=== PATIENT | male | born 1990 | race Caucasian/White ===

== ENCOUNTER → 2021-08-22 10:53 | Outpatient (CLI) | payer OTHER, SELFPAY ==
[2021-08-22 13:11] LABS: COVID-19 CEPHEID PCR (VTM/NP) Negative (Negative)
== END ==
PROVIDERS: Referring Provider Physician Assistant; Visit Provider Physician Assistant
DX: R05.9 Cough, unspecified (principal); R19.7 Diarrhea, unspecified; R09.89 Other specified symptoms and signs involving the circulatory and respiratory systems
CPT/HCPCS: U0003

== ENCOUNTER → 2021-08-27 10:16 | Outpatient (CLI) | payer OTHER, SELFPAY ==
[2021-08-27 11:41] LABS: Influenza A - CEPHEID Flu A NEGATIVE (NEGATIVE); Influenza B - CEPHEID Flu B NEGATIVE (NEGATIVE)
[2021-08-27 11:50] LABS: COVID-19 CEPHEID PCR (VTM/NP) Negative (Negative)
== END ==
PROVIDERS: Referring Provider Nurse Practitioner Family; Visit Provider Nurse Practitioner Family
DX: Z20.822 Contact with and (suspected) exposure to COVID-19 (principal); R68.89 Other general symptoms and signs
CPT/HCPCS: 87502; U0003

== ENCOUNTER → 2021-09-25 08:30 | Outpatient (CLI) | payer OTHER, SELFPAY ==
[2021-09-25 09:01] LABS: COVID19 -Nasal RAPID POSITIVE (Negative)
== END ==
PROVIDERS: Visit Provider Nurse Practitioner Family
DX: R09.81 Nasal congestion (principal); R09.89 Other specified symptoms and signs involving the circulatory and respiratory systems; R51.9 Headache, unspecified
CPT/HCPCS: 87635

== ENCOUNTER 2021-11-19 08:13 | Emergency (ER) | payer OTHER, SELFPAY ==
[2021-11-19 08:27] VITALS: BP 133/89; PULSE 76; RESP 20; TEMP 36.5; O2SAT 96; BMI 33.9
--- NOTE | 2021-11-19 08:33 | DI.CT.S_ITS ---
PROCEDURE: CT CERVICAL SPINE WO CON INDICATIONS: neck pain since friday hit head TECHNIQUE: Noncontrast 3 mm thick sections acquired from the skull base to the T4 level. Sagittal and coronal reformats were then constructed. For radiation dose reduction, the following was used: automated exposure control, adjustment of mA and/or kV according to patient size. COMPARISON: None. FINDINGS: Image quality: Excellent. Bones: No fractures or dislocations. Straightening of normal cervical lordosis is seen. Visualized superior ribs are intact. Soft tissues: Prevertebral soft tissues are normal in thickness. No paravertebral hematomas. No apical pneumothoraces. IMPRESSION: No acute cervical spine fracture or dislocation. Dictated by: Regino Morrell M.D. on 11/19/2021 at 9:09 Approved by: Regino Morrell M.D. on 11/19/2021 at 9:09
--- NOTE | 2021-11-19 08:49 | DI.CT.S_ITS ---
PROCEDURE: CT HEAD/BRAIN WO CON INDICATIONS: sp head injury on friday TECHNIQUE: Noncontrast 4.5 mm thick angled axial sections acquired from the foramen magnum to the vertex, with coronal and sagittal reformats. For radiation dose reduction, the following was used: automated exposure control, adjustment of mA and/or kV according to patient size. COMPARISON: None. FINDINGS: Image quality: Excellent. CSF spaces: Basal cisterns are patent. No extra-axial fluid collections. Ventricles are normal in size and shape. Brain: No midline shift. No intracranial masses or hemorrhage. Welch-white matter interface is normal. Skull and face: Calvarium and visualized facial bones are intact, without suspicious lesions. Sinuses: Visualized sinuses and mastoids are clear. IMPRESSION: No CT evidence of acute intracranial abnormalities. No gross acute skull fracture. Dictated by: Regino Morrell M.D. on 11/19/2021 at 9:08 Approved by: Regino Morrell M.D. on 11/19/2021 at 9:08
--- NOTE | 2021-11-19 09:15 | ED.HEATRA ---
HPI - Head Injury General Chief complaint: Head Injury Stated complaint: Head/neck pain, nausea post work accident Time Seen by Provider: 11/19/21 08:44 Source: patient Mode of arrival: Ambulatory Limitations: no limitations History of Present Illness HPI Narrative: This is a 31-year-old male who on Friday, November 16 was working on a [employer] when the head fell onto the crown of his head. Patient states he felt a little dazed. He has had a headache he had a large hematoma which she states has improved and has had some pain in his lower cervical spine. He was seen at [facility] cleared after evaluation. Patient has continued to have headaches and neck pain. He has had some tingling in his right arm and some tingling adjacent to that area. He is able to move his neck without significant pain but does have discomfort. He did not have any loss of consciousness. He has had some mild nausea but no vomiting. No vision changes. No chest pain or shortness of breath. No loss of bowel or bladder control. He is not appreciate any weakness or difficulty with movement of his extremities. He is healthy with the exception of history of hemiplegic migraines and takes a Triptan. He has had hernia repair. He has allergy to penicillin. He does use tobacco, occasionally drinks alcohol, denies illicit. He has been taking Advil Tylenol combination minimal improvement. Related Data Previous Rx's Medication Instructions Recorded benzonatate 100 mg capsule 100 mg PO BID-TID PRN #14 cap 08/22/21 diazepam 5 mg tablet (Valium) 5 mg PO TID PRN #10 tab 11/19/21 ondansetron 4 mg disintegrating 4 mg PO Q6H PRN #10 tab 11/19/21 tablet Allergies Allergy/AdvReac Type Severity Reaction Status Date / Time Penicillins Allergy Mild Unknown Verified 11/19/21 08:31 Review of Systems Review of Systems ROS Unobtainable: All systems reviewed & are unremarkable except as noted in HPI and below Patient History Social History Smoking Status: Current every day smoker Smoking Status: Current every day smoker alcohol intake frequency: 0-2 drinks per day Substance Use Type: does not use Exam Narrative Exam Narrative: GEN: C-collar in ED. Patient appears in mild distress. HEAD: No evidence of trauma, no raccoon/Mcintyre sign. NECK: Nontender, painless range of motion, trachea midline Positive Nexus criteria, there is mild midline tenderness at C6/7, no distracting injury, altered mental status, neuro deficit, recent EtOH. EYES: PERRLA, EOMI ENT: External inspection normal, trachea is midline, TM's are normal no hemotypanum, Nares are clear, no septal hematoma, no dental or oral injury, airway is normal and with normal occlusion, No bony tenderness RESP: Chest is nontender and has symmetric movement, no ecchymosis, breath sounds are normal no crackles, wheezes or rales CVS: Heart sounds are normal, no murmur noted, No JVD. ABG/GI: Nontender, soft, normal bowel sounds, no distention, no organomegaly NEURO: Oriented AOx3, neuro is grossly intact, sensation and motor is normal all 4 extremities moving, cranial nerves II through XII are intact, GCS is 15. Normal gait. PSYCH: Normal mood and affect SKIN: Intact, warm and dry, no crepitus and without decubitus BACK: No CVA tenderness, no vertebral tenderness, no step-off's, no crepitus EXT: Atraumatic, hips are nontender, no pedal edema, normal color and temperature, normal range of motion of extremities. Patient has 5/5 muscle strength, equal conventions assistant bilaterally. Normal sensation to light touch. Initial Vital Signs Initial Vital Signs: Vital Signs Temperature 97.7 F 11/19/21 08:27 Pulse Rate 76 11/19/21 08:27 Respiratory Rate 20 11/19/21 08:27 Blood Pressure 133/89 11/19/21 08:27 Pulse Oximetry 96 11/19/21 08:27 Scores GCS [place] coma scale eye opening: Spontaneous Denita coma scale verbal response: Orientated Denita coma scale motor response: Obey commands Denita coma scale total score: 15 Course Orders Ordered: ED Orders 11/19/21 08:33 CT cervical spine wo con Stat 11/19/21 08:49 CT head/brain wo con Stat Vital Signs Vital signs: Vital Signs - 8 hr 11/19/21 08:27 11/19/21 09:32 Temperature 97.7 F Pulse Rate 76 84 Respiratory Rate 20 18 Blood Pressure 133/89 133/87 Pulse Oximetry 96 100 MDM - Head Injury Imaging Data CT scan - head: Radiologist's Impression: [address] [address] [address] Scan Report Signed Patient: Curt Dover MR#: [id number] : 1990 Acct:[id number] Age/Sex: 31 / M Date of Service: 11/19/21 Loc: ED Accession Number: [id number] ?? Procedure: CT head/brain wo con Ordering Provider: Saniya Richard D.O. PROCEDURE:? CT HEAD/BRAIN WO CON ? INDICATIONS:? sp head injury on friday ? TECHNIQUE:? Noncontrast 4.5 mm thick angled axial sections acquired from the foramen magnum to the vertex, with coronal and sagittal reformats.? For radiation dose reduction, the following was used:? automated exposure control, adjustment of mA and/or kV according to patient size.? ? COMPARISON:? None. ? FINDINGS:? Image quality:? Excellent.? ? CSF spaces:? Basal cisterns are patent.? No extra-axial fluid collections.? Ventricles are normal in size and shape.? ? Brain:? No midline shift.? No intracranial masses or hemorrhage.? Welch-white matter interface is normal.? ? Skull and face:? Calvarium and visualized facial bones are intact, without suspicious lesions.? ? Sinuses:? Visualized sinuses and mastoids are clear.? ? IMPRESSION:? No CT evidence of acute intracranial abnormalities.? No gross acute skull fracture. ? ? Dictated by: Regino Mrorell M.D. on 11/19/2021 at 9:08 ? ? Approved by: Regino Morrell M.D. on 11/19/2021 at 9:08?? CT - cervical spine: Radiologist's Impression: [address] [address] [address] Scan Report Signed Patient: Curt Dover MR#: [id number] : 1990 Acct:[id number] Age/Sex: 31 / M Date of Service: 11/19/21 Loc: ED Accession Number: [id number] ?? Procedure: CT head/brain wo con Ordering Provider: Saniya Richard D.O. PROCEDURE:? CT HEAD/BRAIN WO CON ? INDICATIONS:? sp head injury on friday ? TECHNIQUE:? Noncontrast 4.5 mm thick angled axial sections acquired from the foramen magnum to the vertex, with coronal and sagittal reformats.? For radiation dose reduction, the following was used:? automated exposure control, adjustment of mA and/or kV according to patient size.? ? COMPARISON:? None. ? FINDINGS:? Image quality:? Excellent.? ? CSF spaces:? Basal cisterns are patent.? No extra-axial fluid collections.? Ventricles are normal in size and shape.? ? Brain:? No midline shift.? No intracranial masses or hemorrhage.? Welch-white matter interface is normal.? ? Skull and face:? Calvarium and visualized facial bones are intact, without suspicious lesions.? ? Sinuses:? Visualized sinuses and mastoids are clear.? ? IMPRESSION:? No CT evidence of acute intracranial abnormalities.? No gross acute skull fracture. ? ? Dictated by: Regino Morrell M.D. on 11/19/2021 at 9:08 ? ? Approved by: Regino Morrell M.D. on 11/19/2021 at 9:08?? [facility] Narrative Medical decision making narrative: This is a 31-year-old male who had a car fallen to his head. No loss of consciousness but has had some concussive symptoms and headache as well as some neck pain persisting since seen at [facility]. He did not have any imaging there he has had some tingling in his arm but no other neurologic changes. Head CT and C-spine are negative. Patient's physical exam is reassuring. He has been taking Advil and Tylenol plan for Zofran for nausea for concussive symptoms and a small dose of muscle relaxer. Discharge Plan Departure Patient Disposition: Home Clinical Impression: Concussion, Cervical strain Instructions: Concussion Activity Restrictions/Additional Instructions: Follow-up if you continue to have symptoms for more than a week. You may continue to take medication at home for your headaches. May take Zofran 1 tablet every 6 hours as needed for nausea. You may take muscle relaxer 1 tablet every 8 hours as needed for muscle spasm. This medication will make you sleepy do not drive, perform hazardous activities or make any major decisions while taking it. Prescription sent to [facility] in [place]. Please return for fevers, altered mental status, new confusion, persistent vomiting, new weakness, loss of sensation, loss of bowel or bladder control, difficulty with conventions assistant or movement or other new or concerning symptoms. Prescriptions: New diazepam [Valium] 5 mg tablet 5 mg PO TID PRN (Reason: muscle spasm) Qty: 10 0RF ondansetron 4 mg tablet,disintegrating 4 mg PO Q6H PRN (Reason: nausea and vomiting) Qty: 10 0RF No Action benzonatate 100 mg capsule 100 mg PO BID-TID PRN (Reason: cough) Qty: 14 0RF Referrals: Miscellaneous,Doctor, MD [Primary Care Provider] - Stand Alone Forms: Work Release Note
[2021-11-19 09:32] VITALS: BP 133/87; PULSE 84; RESP 18; O2SAT 100
== END 2021-11-19 10:11 | disposition home or self-care (01) ==
PROVIDERS: Emergency Provider Emergency Medicine
DX: S06.0X0A Concussion without loss of consciousness, initial encounter (principal); S16.1XXA Strain of muscle, fascia and tendon at neck level, initial encounter; W20.8XXA Other cause of strike by thrown, projected or falling object, initial encounter; Y99.0 Civilian activity done for income or pay
CPT/HCPCS: 70450; 72125; 99283; 99284

== ENCOUNTER 2021-11-21 06:53 | Emergency (ER) | payer OTHER, SELFPAY ==
[2021-11-21 07:21] VITALS: BP 136/90; PULSE 79; RESP 19; TEMP 36.4; O2SAT 97
--- NOTE | 2021-11-21 07:32 | ED_ITS ---
HPI - Headache General Chief Complaint: Headache Stated Complaint: Dizzy, nauseas, confusion post head injury Time Seen by Provider: 11/21/21 07:23 Mode of arrival: Family Vehicle History of Present Illness HPI Narrative: Patient is a 31-year-old male who presents with headache confusion in nausea. He had an injury on FridayNovember 16 while working on home cord the [place]as fell on to the crown of his head. He did not lose consciousness he was little bit days he apparently had a large hematoma and had some pain in his spine. He was seen at a walk-in clinic said he was cleared. He continued to have pain confusion and was seen here on November 19 which point he had a head CT and cervical spine CT his. He was discharged home with Valium and Zofran. He states that over the past couple of days he does not remember what he is doing such as daily tasks. To be cooking and forget what he is cooking or he looks for something and does not know what he is looking for. He says this is very out of the norm. He said the Valium did help his neck pain. He has no numbness tingling or weakness. He is nauseous without vomiting. Denies any fever or chills. Related Data Previous Rx's Medication Instructions Recorded benzonatate 100 mg capsule 100 mg PO BID-TID PRN #14 cap 08/22/21 diazepam 5 mg tablet (Valium) 5 mg PO TID PRN #10 tab 11/19/21 ondansetron 4 mg disintegrating 4 mg PO Q6H PRN #10 tab 11/19/21 tablet Allergies Allergy/AdvReac Type Severity Reaction Status Date / Time Penicillins Allergy Mild Unknown Verified 11/21/21 07:21 Review of Systems Review of Systems Narrative: GENERAL: Denies chills, fatigue, malaise, fever, sweats, travel HEENT: Denies sinus pain, ear pain, sore throat, difficulty swallowing, neck pain RESPIRATORY: Denies dyspnea, cough, wheezing, hemoptysis, sputum. CARDIOVASCULAR: Denies chest pain, palpitations, orthopnea, edema GASTROINTESTINAL: + nausea, denies abdominal pain : Denies dysuria, frequency, incontinence, hematuria, urinary retention, flank pain. MUSCULOSKELETAL: See HPI SKIN: No rash, no erythema, no pruritus NEUROLOGIC: Denies weakness, dizziness, headache, numbness, change in speech, confusion PSYCHIATRIC: No concerning psychosocial issues. 12 point review of systems is negative except for those stated above and HPI Patient History Social History Smoking Status: Current every day smoker Smoking Status: Current every day smoker alcohol intake frequency: 0-2 drinks per day Substance Use Type: does not use Exam Initial Vital Signs Initial Vital Signs: Vital Signs Temperature 97.5 F L 11/21/21 07:21 Pulse Rate 79 11/21/21 07:21 Respiratory Rate 19 11/21/21 07:21 Blood Pressure 136/90 11/21/21 07:21 Pulse Oximetry 97 11/21/21 07:21 GENERAL: Alert well-appearing 31-year-old male and in no acute distress. HEENT: Head atraumatic,EOMI, pupils reactive, face symmetric, moist mucous membranes NECK: Decreased range of motion of neck pain with neck flexion CARDIOVASCULAR: Regular rate and rhythm without murmurs, rubs or gallops. RESPIRATORY: Breath sounds equal bilaterally, no wheezes rales or rhonchi. ABDOMEN: Soft, nontender. Normoactive bowel sounds all 4 quadrants. No guarding or rebound. EXTREMITIES: Normal range of motion, no clubbing or edema. Neurovascularly intact NEUROLOGICAL: Alert and oriented x4.Normal gait and speech. Cranial nerves II through XII grossly intact. Good [id number], good [id number], strength equal bilaterally, no dysarthria or aphasia, sensation in tact to soft touch bilaterally, no visual changes, no facial droop SKIN: Warm, dry, no laceration, no petechiae, no rashes or lesions. Course Orders Ordered: ED Orders 11/21/21 08:05 CBC Auto Diff [Complete Blood Count AUTO DIFF] Stat CMP [Comprehensive Metabolic Panel] Stat Procalcitonin Stat Discontinued Medications Sodium Chloride (Normal Saline 0.9%) 1,000 mls @ 1,000 mls/hr IV BOLUS ONE Stop: 11/21/21 08:37 Last Infusion: 11/21/21 09:12 Dose: 0 mls/hr Documented by: Admin: 11/21/21 08:10 Dose: 1,000 mls/hr Documented by: DEYANIRA Ketorolac Tromethamine (Ketorolac 30 Mg/Ml Vial) 15 mg IV NOW ONE Stop: 11/21/21 07:42 Last Admin: 11/21/21 08:09 Dose: 15 mg Documented by: DEYANIRA Ondansetron HCl (Ondansetron 4 Mg/2 Ml Inj) 4 mg IV NOW ONE Stop: 11/21/21 07:42 Last Admin: 11/21/21 08:07 Dose: 4 mg Documented by: DEYANIRA Vital Signs Vital signs: Vital Signs - 8 hr 11/21/21 07:21 11/21/21 08:11 11/21/21 08:12 Temperature 97.5 F L Pulse Rate 79 72 71 Respiratory Rate 19 Blood Pressure 136/90 127/80 Pulse Oximetry 97 98 97 11/21/21 08:30 11/21/21 08:31 11/21/21 09:13 Temperature Pulse Rate 82 71 70 Respiratory Rate 16 Blood Pressure 118/87 126/90 Pulse Oximetry 97 97 100 MDM - Headache Lab Data Result diagrams: 11/21/21 08:05 11/21/21 08:05 Labs: Lab Results 11/21/21 11/21/21 11/21/21 Range/Units 08:05 08:05 08:05 WBC 5.7 (4.5-11.0) X10^3/uL RBC 4.71 (4.5-5.9) X10^6/uL Hgb 14.8 (13.5-17.5) g/dL Hct 42.2 (41-53) % MCV 89.6 (80-100) fL MCH 31.4 (26-34) PG MCHC 35.1 (30-36) % RDW 13.5 (11.6-14.8) % Plt Count 134 L (150-400) X10^3/uL Neut % (Auto) 59.8 (50-75) % Lymph % (Auto) 26.8 (25-40) % [place] % (Auto) 8.9 (3-14) % Eos % (Auto) 3.7 (2-4) % Baso % (Auto) 0.8 (0-2) % Neut # (Auto) 3400 (4151-8553) /uL Lymph # (Auto) 1500 (2323-5407) /uL [place] # (Auto) 500 (0-900) /uL Eos # (Auto) 200 (0-450) /uL Baso # (Auto) 0 (0-100) /uL Sodium 139 (137-145) mmol/L Potassium 4.2 (3.4-5.1) mmol/L Chloride 108 H (98-107) mmol/L Carbon Dioxide 23 (22-32) mmol/L BUN 14 (9-20) mg/dL Creatinine 0.78 (0.66-1.25) mg/dL Estimated GFR > 60.0 (>60) mL/min BUN/Creatinine Ratio 17.9 (6-22) Glucose 112 H (70-100) mg/dL Calcium 9.2 (8.4-10.2) mg/dL Total Bilirubin 0.5 (0.2-1.3) mg/dL AST 35 (17-59) IU/L ALT 44 (<50) IU/L Alkaline Phosphatase 70 (38-126) U/L Total Protein 8.0 (6.3-8.2) g/dL Albumin 4.6 (3.5-5.0) g/dL Globulin 3.4 (1.7-4.1) g/dL Albumin/Globulin Ratio 1.4 (1.0-2.8) Procalcitonin 0.07 (<0.5) ng/mL MDM Narrative Medical decision making narrative: Patient had a traumatic event less than a week ago. He continues to have some nausea and headache. He had a negative head CT 3 days ago. No need to reimage his head today. His he likely has concussion syndrome. Pain is better after Toradol and Zofran. Blood work is overall reassuring. He has not had any fever he has no leukocytosis and negative procalcitonin this is unlikely an infectious process especially after traumatic injury. Most likely this is a cervical sprain with concussion. Discharge Plan Departure Patient Disposition: Home Clinical Impression: Concussion, Cervical strain Instructions: Concussion, DI for Postconcussion Syndrome Activity Restrictions/Additional Instructions: *You have been diagnosed with concussion *What to do: At this time he the symptoms you are experiencing are likely for concussion syndrome. You may notice that your sensitive to light unable to concentrate, any symptoms may get worse before they get better. It Is reporting that you avoid high-risk activities and avoid 2nd concussion. Please follow-up with her primary care provider. *Continue to take medications as directed Ibuprofen 600 mg every 6 hours if needed for [id number] pain Tylenol 1000 mg every 6 hours if needed for [id number] pain *Follow up with your primary care provider in 2-3 days or call [phone] *Return to ER if you should have persistent vomiting, numbness, weakness, seizures, fever greater than 100.4 or new, worsening or concerning symptoms Prescriptions: No Action benzonatate 100 mg capsule 100 mg PO BID-TID PRN (Reason: cough) Qty: 14 0RF diazepam [Valium] 5 mg tablet 5 mg PO TID PRN (Reason: muscle spasm) Qty: 10 0RF ondansetron 4 mg tablet,disintegrating 4 mg PO Q6H PRN (Reason: nausea and vomiting) Qty: 10 0RF Stand Alone Forms: Work Release Note
[2021-11-21] MEDS: ONDANSETRON 4 MG/2 ML INJ IV (08:07)
[2021-11-21] MEDS: KETOROLAC 30 MG/ML VIAL 15 MG IV (08:09)
[2021-11-21] MEDS: SODIUM CHLORIDE 0.9% 1,000 ML 1000 ML IV (08:10)
[2021-11-21 08:11] VITALS: PULSE 72; O2SAT 98
[2021-11-21 08:12] VITALS: BP 127/80; PULSE 71; O2SAT 97
[2021-11-21 08:15] LABS: Add Manual Diff / Slide Review NO; Basophils Absolute Auto 0 /uL (0-100); Basophils Percent Auto 0.8 % (0-2); Eosinophils Absolute Auto 200 /uL (0-450); Eosinophils Percent Auto 3.7 % (2-4); Hematocrit 42.2 % (41-53); Hemoglobin 14.8 g/dL (13.5-17.5); Lymphocytes Absolute Auto 1500 /uL (1100-4500); Lymphocytes Percent Auto 26.8 % (25-40); Mean Corpuscular HGB Conc 35.1 % (30-36); Mean Corpuscular Hemoglobin 31.4 PG (26-34); Mean Corpuscular Volume 89.6 fL (80-100); Monocytes Absolute Auto 500 /uL (0-900); Monocytes Percent Auto 8.9 % (3-14); Neutrophils Absolute Auto 3400 /uL (1500-7000); Neutrophils Percent Auto 59.8 % (50-75); Platelet Count 134 X10^3/uL (150-400); Red Blood Cell Count 4.71 X10^6/uL (4.5-5.9); Red Cell Distribution Width 13.5 % (11.6-14.8); White Blood Cell Count 5.7 X10^3/uL (4.5-11.0)
[2021-11-21 08:24] LABS: Alanine Aminotransferase 44 IU/L (<50); Albumin 4.6 g/dL (3.5-5.0); Albumin Globulin Ratio 1.4 (1.0-2.8); Alkaline Phosphatase 70 U/L (38-126); Aspartate Aminotransferase 35 IU/L (17-59); BUN Creatinine Ratio 17.9 (6-22); Bilirubin Total 0.5 mg/dL (0.2-1.3); Blood Urea Nitrogen 14 mg/dL (9-20); Calcium 9.2 mg/dL (8.4-10.2); Carbon Dioxide 23 mmol/L (22-32); Chloride 108 mmol/L (98-107); Estimated Glomerular Filt Rate > 60.0 mL/min (>60); Globulin 3.4 g/dL (1.7-4.1); Glucose 112 mg/dL (70-100); HEMOLYSIS < 15 (0-50); Potassium 4.2 mmol/L (3.4-5.1); Sodium 139 mmol/L (137-145)
[2021-11-21 08:30] VITALS: PULSE 82; O2SAT 97
[2021-11-21 08:31] VITALS: BP 118/87; PULSE 71; O2SAT 97
[2021-11-21 08:41] LABS: Procalcitonin 0.07 ng/mL (<0.5)
[2021-11-21 09:13] VITALS: BP 126/90; PULSE 70; RESP 16; O2SAT 100
== END 2021-11-21 09:16 | disposition home or self-care (01) ==
PROVIDERS: Emergency Provider Emergency Medicine
DX: S06.0X0A Concussion without loss of consciousness, initial encounter (principal); S16.1XXA Strain of muscle, fascia and tendon at neck level, initial encounter; F17.200 Nicotine dependence, unspecified, uncomplicated; W20.8XXA Other cause of strike by thrown, projected or falling object, initial encounter; Y92.009 Unspecified place in unspecified non-institutional (private) residence as the place of occurrence of the external cause
CPT/HCPCS: 36415; 80053; 84145; 85025; 96361; 96374; 96375; 99284; J1885; J2405

== ENCOUNTER 2021-12-07 09:57 | Emergency (ER) | payer OTHER, SELFPAY ==
[2021-12-07 10:23] VITALS: BP 136/102; PULSE 73; RESP 14; TEMP 36.6; O2SAT 99; BMI 33.9
--- NOTE | 2021-12-07 10:38 | ED_ITS ---
HPI - GI Bleed General Chief complaint: GI Bleed Stated complaint: bleeding out of rectum Time Seen by Provider: 12/07/21 10:15 Source: patient Mode of arrival: Ambulatory History of Present Illness HPI Narrative: 31-year-old male daily smoker without known chronic medical history presents with a chief complaint of bright red blood from his rectum this morning and left lower quadrant pain. He states that over the past few weeks if not months he has had a change in his stool caliber and has had frequent soft if not loose stools. He denies any unexplained weight loss but does admit to being fatigued. He takes no blood thinners. He denies any dizziness, weakness or lightheadedness. Denies chest pain or shortness of breath. He denies any dietary change. He has had no straining on the toilet. He does not have a primary care provider Related Data Previous Rx's Medication Instructions Recorded benzonatate 100 mg capsule 100 mg PO BID-TID PRN #14 cap 08/22/21 diazepam 5 mg tablet (Valium) 5 mg PO TID PRN #10 tab 11/19/21 ondansetron 4 mg disintegrating 4 mg PO Q6H PRN #10 tab 11/19/21 tablet Allergies Allergy/AdvReac Type Severity Reaction Status Date / Time Penicillins Allergy Mild Unknown Verified 12/07/21 10:28 Review of Systems Review of Systems Narrative: GENERAL: See HP HEENT: Denies sinus pain, ear pain, sore throat, difficulty swallowing, dizziness. RESPIRATORY: Denies dyspnea, cough, wheezing, hemoptysis, sputum. CARDIOVASCULAR: Denies chest pain, palpitations, orthopnea, edema, GASTROINTESTINAL: See HPI : Denies dysuria, frequency, incontinence, hematuria, urinary retention. MUSCULOSKELETAL: denies weakness, joint pain, or bony pain SKIN: Denies rash, skin lesions, or other NEUROLOGIC: Denies weakness, headache, numbness, change in speech, confusion, seizures, incoordination. PSYCHIATRIC: No concerning psychosocial issues. 12 point review of systems is negative except for those stated above Patient History Social History Smoking Status: Current every day smoker Smoking Status: Current every day smoker alcohol intake frequency: 0-2 drinks per day Substance Use Type: does not use Exam Narrative Exam Narrative: GENERAL: [31 year old patient appears stated age. Well-developed patient, in mild distress. HEAD: Atraumatic. Normocephalic. EYES: Pupils equal round and reactive. Extraocular motions intact. No scleral icterus. No injection or drainage. ENT: Nose without bleeding, purulent drainage. Throat without erythema, tonsillar hypertrophy or exudate. Airway patent. NECK: Trachea midline. Non tender CARDIOVASCULAR: Regular rate and rhythm without murmurs, gallops, or rubs. RESPIRATORY: Clear to auscultation. Breath sounds equal bilaterally. No wheezes, rales, or rhonchi. GASTROINTESTINAL: Abdomen soft, tender in left lower quadrant, bowel sounds pre sent in all quadrants. RECTAL: No obvious bleeding, no hemorrhoid, no fissure, performed with patient permission and female nursing college or university business manager at the bedside EXTREMITIES: No edema or joint tenderness. BACK: Nontender without deformity or crepitance. No flank tenderness. NEURO: AOx3. SKIN: No rash or erythema of visible areas Initial Vital Signs Initial Vital Signs: Vital Signs Temperature 97.9 F 12/07/21 10:23 Pulse Rate 73 12/07/21 10:23 Respiratory Rate 14 12/07/21 10:23 Blood Pressure 136/102 H 12/07/21 10:23 Pulse Oximetry 99 12/07/21 10:23 Course Orders Ordered: Discontinued Medications Sodium Chloride (Normal Saline 0.9%) 1,000 mls @ 150 mls/hr IV CONT GENARO Last Admin: 12/07/21 10:46 Dose: 150 mls/hr Documented by: KAMERON Vital Signs Vital signs: Vital Signs - 8 hr 12/07/21 10:23 12/07/21 10:50 12/07/21 10:52 Temperature 97.9 F Pulse Rate 73 69 68 Respiratory Rate 14 22 Blood Pressure 136/102 H 120/77 Pulse Oximetry 99 99 98 12/07/21 11:00 Temperature Pulse Rate 67 Respiratory Rate 20 Blood Pressure 114/75 Pulse Oximetry 97 MDM - GI Bleed Lab Data Result diagrams: 12/07/21 10:44 12/07/21 10:44 Labs: Lab Results 12/07/21 12/07/21 Range/Units 10:44 10:44 WBC 6.4 (4.5-11.0) X10^3/uL RBC 5.10 (4.5-5.9) X10^6/uL Hgb 16.1 (13.5-17.5) g/dL Hct 45.6 (41-53) % MCV 89.4 (80-100) fL MCH 31.6 (26-34) PG MCHC 35.3 (30-36) % RDW 13.2 (11.6-14.8) % Plt Count 173 (150-400) X10^3/uL Neut % (Auto) 58.4 (50-75) % Lymph % (Auto) 30.5 (25-40) % [place] % (Auto) 8.4 (3-14) % Eos % (Auto) 1.6 L (2-4) % Baso % (Auto) 1.1 (0-2) % Neut # (Auto) 3800 (1535-6216) /uL Lymph # (Auto) 2000 (6875-0592) /uL [place] # (Auto) 500 (0-900) /uL Eos # (Auto) 100 (0-450) /uL Baso # (Auto) 100 (0-100) /uL Sodium 138 (137-145) mmol/L Potassium 4.3 (3.4-5.1) mmol/L Chloride 105 (98-107) mmol/L Carbon Dioxide 24 (22-32) mmol/L BUN 11 (9-20) mg/dL Creatinine 0.81 (0.66-1.25) mg/dL Estimated GFR > 60.0 (>60) mL/min BUN/Creatinine Ratio 13.6 (6-22) Glucose 109 H (70-100) mg/dL Calcium 10.0 (8.4-10.2) mg/dL Total Bilirubin 0.9 (0.2-1.3) mg/dL AST 38 (17-59) IU/L ALT 52 H (<50) IU/L Alkaline Phosphatase 85 (38-126) U/L Total Protein 9.4 H (6.3-8.2) g/dL Albumin 5.4 H (3.5-5.0) g/dL Globulin 4.0 (1.7-4.1) g/dL Albumin/Globulin Ratio 1.4 (1.0-2.8) Lipase 46 (23-300) U/L Imaging Data CT scan - abdomen/pelvis: Radiologist's Impression: [address] [address] [address] Scan Report Signed Patient: Curt Dover MR#: [id number] : 1990 Acct:[id number] Age/Sex: 31 / M Date of Service: 12/07/21 Loc: ED Accession Number: [id number] ?? Procedure: CT abdomen pelvis w con Ordering Provider: Milan Hidalgo D.O. PROCEDURE:? CT ABDOMEN PELVIS W CON ? INDICATIONS:? LLQ pain, bright red blood, change in bowel habits ? TECHNIQUE:? After the administration of IV contrast, axial sections were acquired from the lung bases to the pubic symphysis.? Coronal and sagittal reformats were performed.? For radiation dose reduction, the following was used:? automated exposure control, adjustment of mA and/or kV according to patient size. ? COMPARISON:? [facility], CT, CT ABDOMEN PELVIS WITH CONTRAST, 11/24/2020, 14:10. ? FINDINGS:? Image quality:? Excellent.? ? Lung bases:? Unremarkable.? ? Heart:? No significant findings. ? ? ABDOMEN: Liver:? Unremarkable.? ? Gallbladder:? Unremarkable.? ? Biliary ducts:? Unremarkable.? ? Pancreas:? Unremarkable.? ? Spleen:? Unremarkable.? ? Adrenal Glands:? Unremarkable.? ? Kidneys and Ureters:? Unremarkable.? ? ? Stomach and Bowel:? No small bowel obstruction.? There are a few colonic diverticuli suspected in the right colon.? Very subtle peritoneal reflection thickening at the left lower quadrant, (), not dissimilar dating back to 2019. Peritoneum:? No abnormal intraperitoneal fluid.? No free air.? ? Ventral Wall: ? No significant hernia.? Abdominal Nodes:? Shotty mesenteric lymph nodes and right lower quadrant lymph nodes.? Vessels:? Aorta and inferior vena cava are normal in size.? ? PELVIS: Pelvic Organs:? Unremarkable.? ? Bladder:? Unremarkable.? ? Pelvic Nodes: No enlarged lymph nodes.? Miscellaneous:? Probable fat containing right inguinal hernia.? Possible left inguinal hernia. ? ? ? Bones:? No suspicious lesion.? No fracture.? IMPRESSION:? 1. Shotty right lower quadrant mesenteric lymph nodes are similar. ? 2. No fluid collection. ? Consider further evaluation with colonoscopy. ? Dictated by: Sean Willett M.D. on 12/07/2021 at 10:37 ? ? Approved by: Sean Willett M.D. on 12/07/2021 at 10:45 ? MDM Narrative Medical decision making narrative: 31-year-old male otherwise healthy presents with essentially painless bright red bleeding per rectum. He has a reassuring history and physical exam, labs demonstrate no sign of infection, anemia or other significant abnormality. He has had some change in stool caliber lately and there is minimal discomfort on palpation, we discussed at length the bedside the risks and benefits of p erforming a more in-depth evaluation which would include is CT with IV contrast. This is performed and no significant findings are noted. He is encouraged to employ clear liquid diet, return precautions are discuss importance of follow-up is understood. Discharge Plan Departure Patient Disposition: Home Clinical Impression: Bright red rectal bleeding Instructions: DI for Rectal Bleeding Activity Restrictions/Additional Instructions: *You have been diagnosed with [rectal bleeding. Your history and physical exam as well as labs and imaging are very reassuring. There is no evidence of in fection, anemia or mass. *What to do: *Please continue to take your regular medications as directed. [ ] New medication prescriptions sent to your pharmacy: [ ] [ ] New medication written as a paper prescription [ ] No new medications given *If you do not have a primary care provider please contact the [facility] Resource line at [phone]. They will ask some questions about your medical history and help get you set up with a doctor in the community. * please consider a clear liquid diet for the next 24-48 hours and then advance slowly as tolerated * also, as we discussed please contact [facility] for further evaluation which may include a colonoscopy *Return to Emergency Department if you should have any new, worsening or concerning symptoms, such as [fever greater than 101 F, shaking chills, worsening pain, persistent vomiting or other bothersome symptoms] Prescriptions: No Action benzonatate 100 mg capsule 100 mg PO BID-TID PRN (Reason: cough) Qty: 14 0RF diazepam [Valium] 5 mg tablet 5 mg PO TID PRN (Reason: muscle spasm) Qty: 10 0RF ondansetron 4 mg tablet,disintegrating 4 mg PO Q6H PRN (Reason: nausea and vomiting) Qty: 10 0RF Referrals: Chen Izaguirre MD [Physician] -
[2021-12-07] MEDS: SODIUM CHLORIDE 0.9% 1,000 ML 150 ML IV (10:46)
[2021-12-07 10:50] VITALS: PULSE 69; O2SAT 99
[2021-12-07 10:51] LABS: Add Manual Diff / Slide Review NO; Basophils Absolute Auto 100 /uL (0-100); Basophils Percent Auto 1.1 % (0-2); Eosinophils Absolute Auto 100 /uL (0-450); Eosinophils Percent Auto 1.6 % (2-4); Hematocrit 45.6 % (41-53); Hemoglobin 16.1 g/dL (13.5-17.5); Lymphocytes Absolute Auto 2000 /uL (1100-4500); Lymphocytes Percent Auto 30.5 % (25-40); Mean Corpuscular HGB Conc 35.3 % (30-36); Mean Corpuscular Hemoglobin 31.6 PG (26-34); Mean Corpuscular Volume 89.4 fL (80-100); Monocytes Absolute Auto 500 /uL (0-900); Monocytes Percent Auto 8.4 % (3-14); Neutrophils Absolute Auto 3800 /uL (1500-7000); Neutrophils Percent Auto 58.4 % (50-75); Platelet Count 173 X10^3/uL (150-400); Red Cell Distribution Width 13.2 % (11.6-14.8); White Blood Cell Count 6.4 X10^3/uL (4.5-11.0)
[2021-12-07 10:52] VITALS: BP 120/77; PULSE 68; RESP 22; O2SAT 98
[2021-12-07 11:00] VITALS: BP 114/75; PULSE 67; RESP 20; O2SAT 97
[2021-12-07 11:01] LABS: Alanine Aminotransferase 52 IU/L (<50); Albumin 5.4 g/dL (3.5-5.0); Albumin Globulin Ratio 1.4 (1.0-2.8); Alkaline Phosphatase 85 U/L (38-126); Aspartate Aminotransferase 38 IU/L (17-59); BUN Creatinine Ratio 13.6 (6-22); Bilirubin Total 0.9 mg/dL (0.2-1.3); Blood Urea Nitrogen 11 mg/dL (9-20); Carbon Dioxide 24 mmol/L (22-32); Chloride 105 mmol/L (98-107); Estimated Glomerular Filt Rate > 60.0 mL/min (>60); Glucose 109 mg/dL (70-100); HEMOLYSIS < 15 (0-50); Lipase 46 U/L (23-300); Potassium 4.3 mmol/L (3.4-5.1); Sodium 138 mmol/L (137-145); Total Protein 9.4 g/dL (6.3-8.2)
[2021-12-07 11:30] VITALS: PULSE 74; RESP 16; O2SAT 99
--- NOTE | 2021-12-07 11:30 | DI.CT.S_ITS ---
PROCEDURE: CT ABDOMEN PELVIS W CON INDICATIONS: LLQ pain, bright red blood, change in bowel habits TECHNIQUE: After the administration of IV contrast, axial sections were acquired from the lung bases to the pubic symphysis. Coronal and sagittal reformats were performed. For radiation dose reduction, the following was used: automated exposure control, adjustment of mA and/or kV according to patient size. COMPARISON: [facility], CT, CT ABDOMEN PELVIS WITH CONTRAST, 11/24/2020, 14:10. FINDINGS: Image quality: Excellent. Lung bases: Unremarkable. Heart: No significant findings. ABDOMEN: Liver: Unremarkable. Gallbladder: Unremarkable. Biliary ducts: Unremarkable. Pancreas: Unremarkable. Spleen: Unremarkable. Adrenal Glands: Unremarkable. Kidneys and Ureters: Unremarkable. Stomach and Bowel: No small bowel obstruction. There are a few colonic diverticuli suspected in the right colon. Very subtle peritoneal reflection thickening at the left lower quadrant, (), not dissimilar dating back to 2019. Peritoneum: No abnormal intraperitoneal fluid. No free air. Ventral Wall: No significant hernia. Abdominal Nodes: Shotty mesenteric lymph nodes and right lower quadrant lymph nodes. Vessels: Aorta and inferior vena cava are normal in size. PELVIS: Pelvic Organs: Unremarkable. Bladder: Unremarkable. Pelvic Nodes: No enlarged lymph nodes. Miscellaneous: Probable fat containing right inguinal hernia. Possible left inguinal hernia. Bones: No suspicious lesion. No fracture. IMPRESSION: 1. Shotty right lower quadrant mesenteric lymph nodes are similar. 2. No fluid collection. Consider further evaluation with colonoscopy. Dictated by: Sean Willett M.D. on 12/07/2021 at 10:37 Approved by: Sean Willett M.D. on 12/07/2021 at 10:45
[2021-12-07 12:00] VITALS: BP 114/75; PULSE 68; RESP 17; TEMP 36.6; O2SAT 98
== END 2021-12-07 12:00 | disposition home or self-care (01) ==
PROVIDERS: Emergency Provider Emergency Medicine
DX: K62.5 Hemorrhage of anus and rectum (principal); F17.200 Nicotine dependence, unspecified, uncomplicated
CPT/HCPCS: 36415; 74177; 80053; 83690; 85025; 99284

== ENCOUNTER → 2022-10-11 10:28 | Outpatient (CLI) | payer OTHER, SELFPAY ==
[2022-10-11 12:54] LABS: Urine N gonorrhoeae NOT DETECTED
[2022-10-11 12:56] LABS: Urine Chlamydia NOT DETECTED
== END ==
PROVIDERS: Visit Provider Nurse Practitioner Family
DX: R10.2 Pelvic and perineal pain (principal)
CPT/HCPCS: 87086; 87491; 87591

== ENCOUNTER 2022-10-11 11:27 | Emergency (ER) | payer OTHER, SELFPAY ==
[2022-10-11] VITALS (9 sets, daily range): BP systolic 102–139; BP diastolic 68–86; PULSE 57–85; RESP 15–16; TEMP 37.4; O2SAT 97–100; BMI 33.5
[2022-10-11 12:51] LABS: Add Manual Diff / Slide Review NO; Basophils Absolute Auto 100 /uL (0-100); Basophils Percent Auto 0.8 % (0-2); Eosinophils Absolute Auto 200 /uL (0-450); Eosinophils Percent Auto 2.2 % (2-4); Hematocrit 44.3 % (41-53); Hemoglobin 15.4 g/dL (13.5-17.5); Lymphocytes Absolute Auto 2200 /uL (1100-4500); Lymphocytes Percent Auto 31.5 % (25-40); Mean Corpuscular HGB Conc 34.8 % (30-36); Mean Corpuscular Hemoglobin 31.5 PG (26-34); Mean Corpuscular Volume 90.4 fL (80-100); Monocytes Absolute Auto 600 /uL (0-900); Monocytes Percent Auto 8.3 % (3-14); Neutrophils Absolute Auto 3900 /uL (1500-7000); Neutrophils Percent Auto 57.2 % (50-75); Platelet Count 170 X10^3/uL (150-400); Red Cell Distribution Width 13.2 % (11.6-14.8); White Blood Cell Count 6.9 X10^3/uL (4.5-11.0)
[2022-10-11 12:56] LABS: Alanine Aminotransferase 37 IU/L (<50); Alkaline Phosphatase 82 U/L (38-126); Aspartate Aminotransferase 32 IU/L (17-59); BUN Creatinine Ratio 16.9 (6-22); Bilirubin Total 0.8 mg/dL (0.2-1.3); Blood Urea Nitrogen 13 mg/dL (9-20); Calcium 9.5 mg/dL (8.4-10.2); Carbon Dioxide 26 mmol/L (22-32); Chloride 103 mmol/L (98-107); Estimated Glomerular Filt Rate > 60 mL/min (>60); Glucose 102 mg/dL (70-100); HEMOLYSIS < 15 (0-50); Lipase 54 U/L (23-300); Potassium 4.2 mmol/L (3.4-5.1); Sodium 140 mmol/L (137-145); Total Protein 8.6 g/dL (6.3-8.2)
--- NOTE | 2022-10-11 12:59 | DI.CT.S_ITS ---
PROCEDURE: CT ABDOMEN PELVIS W CON INDICATIONS: LLQ/inguinal/flank pain, history of hernia repair TECHNIQUE: After the administration of intravenous contrast, axial sections acquired from the lung bases to the pubic symphysis. Coronal and sagittal reformats were performed. For radiation dose reduction, the following was used: automated exposure control, adjustment of mA and/or kV according to patient size. COMPARISON: [facility], CT, CT ABDOMEN PELVIS W CON, 12/07/2021, 11:23. FINDINGS: Image quality: Excellent. Lung bases: Unremarkable. Heart: No significant findings. ABDOMEN: Liver: Very mild diffuse hepatic steatosis.. Gallbladder: Unremarkable. Biliary ducts: Unremarkable. Pancreas: Unremarkable. Spleen: Unremarkable. Adrenal Glands: Unremarkable. Kidneys and Ureters: Unremarkable. Stomach and Bowel: Mild changes of uncomplicated diverticulitis at the junction between the descending colon and sigmoid colon. No free air or free fluid or abscess cavity. Mild inflammatory change in the adjacent. Peritoneum: No abnormal intraperitoneal fluid. No free air. Ventral Wall: No hernias. Abdominal Nodes: No retroperitoneal or mesenteric adenopathy by size criteria. Vessels: Aorta and inferior vena cava are normal in size. PELVIS: Pelvic Organs: Unremarkable. Bladder: Unremarkable. Pelvic Nodes: No enlarged lymph nodes. Miscellaneous: Unchanged. Fat containing right inguinal hernia. Question smaller fat containing left inguinal hernia. Bones: Unremarkable. IMPRESSION: 1. Mild diverticulosis. Very mild superimposed acute diverticulitis. 2. Very mild diffuse hepatic steatosis. 3. Fat containing right inguinal hernia. Question fat containing left inguinal hernia. Dictated by: Marvin Funes M.D. on 10/11/2022 at 13:30 Approved by: Marvin Funes M.D. on 10/11/2022 at 13:33
[2022-10-11 13:18] LABS: Bacteria Urine None Seen; Culture Indicated Urine Cult Not Indicated; RBC Urine None Seen (0-5/HPF); Urine Comments Microscopic Normal; WBC Urine None Seen (0-5/HPF)
[2022-10-11] MEDS: SODIUM CHLORIDE 0.9% 1,000 ML 1000 ML IV (13:21)
[2022-10-11] MEDS: KETOROLAC 30 MG/ML VIAL 15 MG IV (13:22)
--- NOTE | 2022-10-11 13:27 | ED_ITS ---
HPI - Abdominal Pain <BONIFACIO Owen - Last Filed: 10/11/22 17:04> General Chief Complaint: Abdominal Pain Stated Complaint: sent by [facility]/ LT abd pain Time Seen by Provider: 10/11/22 12:39 Source: patient Mode of arrival: Ambulatory History of Present Illness HPI narrative: 32-year-old male presents to the emergency department after being seen at the walk-in clinic for left lower quadrant pain which started 3 days ago. Patient states that he has a history of bright red blood in his stool but denies knowing if he has a hemorrhoid or not. Denies history of IBS, denies nausea vomiting, has a history greater than alcohol beverages per day, states that he has had diverticulitis in the past but but has never had a colonoscopy. He does not have a primary care provider, denies follow-up with gastroenterology in the past. States that he is had small amounts of bright red blood in his stool but denies rectal pain, denies urinary abnormality. States that he has had his symptoms for last 3 days and felt poorly but has not had vomiting, diarrhea but has had small amounts of blood in his stool, states this is not new for him. Related Data Previous Rx's Medication Instructions Recorded benzonatate 100 mg capsule 100 mg PO BID-TID PRN cough #14 08/22/21 caps diazepam 5 mg tablet (Valium) 5 mg PO TID PRN muscle spasm #10 11/19/21 tabs ondansetron 4 mg disintegrating 4 mg PO Q6H PRN nausea and 11/19/21 tablet vomiting #10 tabs ciprofloxacin HCl 500 mg tablet 500 mg PO BID 10 days #20 tabs 10/11/22 metronidazole 500 mg tablet 500 mg PO TID 10 days #30 tabs 10/11/22 ondansetron 4 mg disintegrating 4 mg PO Q8H PRN nausea and 10/11/22 tablet vomiting #10 tabs Allergies Allergy/AdvReac Type Severity Reaction Status Date / Time Penicillins Allergy Mild Unknown Verified 10/11/22 11:34 Review of Systems <BONIFACIO Owen - Last Filed: 10/11/22 17:04> Review of Systems ROS Unobtainable: All systems reviewed & are unremarkable except as noted in HPI and below Patient History <BONIFACIO Owen - Last Filed: 10/11/22 17:04> Social History Smoking Status: Current every day smoker Smoking Status: Current every day smoker alcohol intake frequency: 3 or more drinks per day Alcohol type: beer and hard liquor Substance Use Type: does not use Exam <BONIFACIO Owen - Last Filed: 10/11/22 17:04> Narrative Exam Narrative: Reviewed vitals signs and nursing notes. General: cooperative, comfortable, in no acute distress, well groomed HEENT: symmetrical facial expressions, moist mucous membranes Cardiovascular: regular rate and rhythm, no peripheral edema, warm extremities Respiratory: normal effort, able to speak in complete sentences, without wheezing, stridor, or abnormal breath sounds. No retractions or tachypnea. GI: abdomen soft, nontender to palpation, nondistended, without masses, rebound tenderness or exquisite tenderness with exam. Mild tenderness to lower left quadrant with deep palpation but no CVA tenderness MSK: moves all extremities, neurovascularly intact, no weakness, normal tone Skin: brisk capillary refill, without pallor or erythema Neuro: normal speech and cognition, A&O x3, ambulatory, clear speech Psych: mental status is grossly normal, congruent mood, normal affect, pleasant and cooperative Initial Vital Signs Initial Vital Signs: Vital Signs Temperature 99.4 F 10/11/22 11:29 Pulse Rate 68 10/11/22 11:29 Respiratory Rate 15 10/11/22 11:29 Blood Pressure 139/86 10/11/22 11:29 Pulse Oximetry 99 10/11/22 11:29 Oxygen Delivery Method 10/11/22 11:29 <Saniya Richard DO - Last Filed: 10/12/22 14:28> Initial Vital Signs Initial Vital Signs: Vital Signs Temperature 99.4 F 10/11/22 11:29 Pulse Rate 68 10/11/22 11:29 Respiratory Rate 15 10/11/22 11:29 Blood Pressure 139/86 10/11/22 11:29 Pulse Oximetry 99 10/11/22 11:29 Oxygen Delivery Method 10/11/22 11:29 Course <BONIFACIO Owen - Last Filed: 10/11/22 17:04> Orders Ordered: Discontinued Medications Ciprofloxacin (Ciprofloxacin 250 Mg Tablet) 500 mg PO NOW ONE Stop: 10/11/22 13:43 Last Admin: 10/11/22 13:59 Dose: 500 mg Documented By: AT Hydromorphone HCl (Hydromorphone 0.5 Mg Inj) 0.5 mg IV NOW ONE Stop: 10/11/22 13:00 Last Admin: 10/11/22 14:01 Dose: Not Given Documented By: AT Sodium Chloride (Normal Saline 0.9%) 1,000 mls @ 1,000 mls/hr IV BOLUS ONE Stop: 10/11/22 13:58 Last Infusion: 10/11/22 14:02 Dose: 0 mls/hr Documented By: Admin: 10/11/22 13:21 Dose: 1,000 mls/hr Documented By: AT Ketorolac Tromethamine (Ketorolac 30 Mg/Ml Vial) 15 mg IV NOW ONE Stop: 10/11/22 13:00 Last Admin: 10/11/22 13:22 Dose: 15 mg Documented By: AT Metronidazole (Metronidazole 500 Mg Tablet) 500 mg PO NOW ONE Stop: 10/11/22 13:44 Last Admin: 10/11/22 13:59 Dose: 500 mg Documented By: AT Ondansetron HCl (Ondansetron 4 Mg/2 Ml Inj) 4 mg IV NOW PRN PRN Reason: Nausea And Vomiting Vital Signs Vital signs: Vital Signs - 8 hr 10/11/22 11:29 10/11/22 11:43 10/11/22 12:00 Temperature 99.4 F Pulse Rate 68 64 Respiratory Rate 15 Blood Pressure 139/86 112/76 Pulse Oximetry 99 98 Oxygen Delivery Method Room Air 10/11/22 12:00 10/11/22 12:30 10/11/22 12:30 Temperature Pulse Rate 64 65 Respiratory Rate Blood Pressure 102/68 Pulse Oximetry 97 98 Oxygen Delivery Method Room Air Room Air 10/11/22 13:00 10/11/22 13:01 10/11/22 13:01 Temperature Pulse Rate 69 66 Respiratory Rate Blood Pressure 129/82 Pulse Oximetry 98 98 Oxygen Delivery Method 10/11/22 13:16 10/11/22 13:16 10/11/22 13:30 Temperature Pulse Rate 68 Respiratory Rate Blood Pressure 138/85 127/86 Pulse Oximetry 98 Oxygen Delivery Method Room Air 10/11/22 13:30 10/11/22 14:00 Temperature Pulse Rate 57 L 85 Respiratory Rate 16 Blood Pressure Pulse Oximetry 99 100 Oxygen Delivery Method Room Air Room Air <Saniya Richard DO - Last Filed: 10/12/22 14:28> Orders Ordered: Discontinued Medications Ciprofloxacin (Ciprofloxacin 250 Mg Tablet) 500 mg PO NOW ONE Stop: 10/11/22 13:43 Last Admin: 10/11/22 13:59 Dose: 500 mg Documented By: AT Hydromorphone HCl (Hydromorphone 0.5 Mg Inj) 0.5 mg IV NOW ONE Stop: 10/11/22 13:00 Last Admin: 10/11/22 14:01 Dose: Not Given Documented By: AT Sodium Chloride (Normal Saline 0.9%) 1,000 mls @ 1,000 mls/hr IV BOLUS ONE Stop: 10/11/22 13:58 Last Infusion: 10/11/22 14:02 Dose: 0 mls/hr Documented By: Admin: 10/11/22 13:21 Dose: 1,000 mls/hr Documented By: AT Ketorolac Tromethamine (Ketorolac 30 Mg/Ml Vial) 15 mg IV NOW ONE Stop: 10/11/22 13:00 Last Admin: 10/11/22 13:22 Dose: 15 mg Documented By: AT Metronidazole (Metronidazole 500 Mg Tablet) 500 mg PO NOW ONE Stop: 10/11/22 13:44 Last Admin: 10/11/22 13:59 Dose: 500 mg Documented By: AT Ondansetron HCl (Ondansetron 4 Mg/2 Ml Inj) 4 mg IV NOW PRN PRN Reason: Nausea And Vomiting Vital Signs Vital signs: Vital Signs - 8 hr 10/11/22 11:29 10/11/22 11:43 10/11/22 12:00 Temperature 99.4 F Pulse Rate 68 64 Respiratory Rate 15 Blood Pressure 139/86 112/76 Pulse Oximetry 99 98 Oxygen Delivery Method Room Air 10/11/22 12:00 10/11/22 12:30 10/11/22 12:30 Temperature Pulse Rate 64 65 Respiratory Rate Blood Pressure 102/68 Pulse Oximetry 97 98 Oxygen Delivery Method Room Air Room Air 10/11/22 13:00 10/11/22 13:01 10/11/22 13:01 Temperature Pulse Rate 69 66 Respiratory Rate Blood Pressure 129/82 Pulse Oximetry 98 98 Oxygen Delivery Method 10/11/22 13:16 10/11/22 13:16 10/11/22 13:30 Temperature Pulse Rate 68 Respiratory Rate Blood Pressure 138/85 127/86 Pulse Oximetry 98 Oxygen Delivery Method Room Air 10/11/22 13:30 10/11/22 14:00 Temperature Pulse Rate 57 L 85 Respiratory Rate 16 Blood Pressure Pulse Oximetry 99 100 Oxygen Delivery Method Room Air Room Air MDM - Abdominal Pain <MICHAELLE OwenP - Last Filed: 10/11/22 17:04> Lab Data Result diagrams: 10/11/22 11:35 10/11/22 11:35 Labs: Lab Results 10/11/22 10/11/22 10/11/22 Range/Units 11:35 11:35 12:59 WBC 6.9 (4.5-11.0) X10^3/uL RBC 4.90 (4.5-5.9) X10^6/uL Hgb 15.4 (13.5-17.5) g/dL Hct 44.3 (41-53) % MCV 90.4 (80-100) fL MCH 31.5 (26-34) PG MCHC 34.8 (30-36) % RDW 13.2 (11.6-14.8) % Plt Count 170 (150-400) X10^3/uL Neut % (Auto) 57.2 (50-75) % Lymph % (Auto) 31.5 (25-40) % [place] % (Auto) 8.3 (3-14) % Eos % (Auto) 2.2 (2-4) % Baso % (Auto) 0.8 (0-2) % Neut # (Auto) 3900 (0276-7117) /uL Lymph # (Auto) 2200 (8426-6431) /uL [place] # (Auto) 600 (0-900) /uL Eos # (Auto) 200 (0-450) /uL Baso # (Auto) 100 (0-100) /uL Sodium 140 (137-145) mmol/L Potassium 4.2 (3.4-5.1) mmol/L Chloride 103 (98-107) mmol/L Carbon Dioxide 26 (22-32) mmol/L BUN 13 (9-20) mg/dL Creatinine 0.77 (0.66-1.25) mg/dL Estimated GFR > 60 (>60) mL/min BUN/Creatinine Ratio 16.9 (6-22) Glucose 102 H (70-100) mg/dL Calcium 9.5 (8.4-10.2) mg/dL Total Bilirubin 0.8 (0.2-1.3) mg/dL AST 32 (17-59) IU/L ALT 37 (<50) IU/L Alkaline Phosphatase 82 (38-126) U/L C-Reactive Protein (<1.0) mg/dL Total Protein 8.6 H (6.3-8.2) g/dL Albumin 4.9 (3.5-5.0) g/dL Globulin 3.7 (1.7-4.1) g/dL Albumin/Globulin Ratio 1.3 (1.0-2.8) Lipase 54 (23-300) U/L Urine RBC None seen (0-5/HPF) Urine WBC None seen (0-5/HPF) Urine Bacteria None seen (None) Ur Culture Indicated? Cult not indicated Micro UA Comment Microscopic normal 10/11/22 Range/Units 12:59 WBC (4.5-11.0) X10^3/uL RBC (4.5-5.9) X10^6/uL Hgb (13.5-17.5) g/dL Hct (41-53) % MCV (80-100) fL MCH (26-34) PG MCHC (30-36) % RDW (11.6-14.8) % Plt Count (150-400) X10^3/uL Neut % (Auto) (50-75) % Lymph % (Auto) (25-40) % [place] % (Auto) (3-14) % Eos % (Auto) (2-4) % Baso % (Auto) (0-2) % Neut # (Auto) (2058-6630) /uL Lymph # (Auto) (9727-9287) /uL [place] # (Auto) (0-900) /uL Eos # (Auto) (0-450) /uL Baso # (Auto) (0-100) /uL Sodium (137-145) mmol/L Potassium (3.4-5.1) mmol/L Chloride (98-107) mmol/L Carbon Dioxide (22-32) mmol/L BUN (9-20) mg/dL Creatinine (0.66-1.25) mg/dL Estimated GFR (>60) mL/min BUN/Creatinine Ratio (6-22) Glucose (70-100) mg/dL Calcium (8.4-10.2) mg/dL Total Bilirubin (0.2-1.3) mg/dL AST (17-59) IU/L ALT (<50) IU/L Alkaline Phosphatase (38-126) U/L C-Reactive Protein < 0.5 (<1.0) mg/dL Total Protein (6.3-8.2) g/dL Albumin (3.5-5.0) g/dL Globulin (1.7-4.1) g/dL Albumin/Globulin Ratio (1.0-2.8) Lipase (23-300) U/L Urine RBC (0-5/HPF) Urine WBC (0-5/HPF) Urine Bacteria (None) Ur Culture Indicated? Micro UA Comment Imaging Data CT scan - abdomen/pelvis: Radiologist's Impression: PROCEDURE:? CT ABDOMEN PELVIS W CON ? INDICATIONS:? LLQ/inguinal/flank pain, history of hernia repair ? TECHNIQUE:? After the administration of intravenous contrast, axial sections acquired from the lung bases to the pubic symphysis.? Coronal and sagittal reformats were performed.? For radiation dose reduction, the following was used:? automated exposure control, adjustment of mA and/or kV according to patient size.? ? COMPARISON:? [facility], CT, CT ABDOMEN PELVIS W CON, 12/07/2021, 11:23. ? FINDINGS:? Image quality:? Excellent.? ? Lung bases:? Unremarkable. Heart:? No significant findings. ? ABDOMEN: Liver:? Very mild diffuse hepatic steatosis..? ? Gallbladder:? Unremarkable.? ? Biliary ducts:? Unremarkable.? ? Pancreas:? Unremarkable.? ? Spleen:? Unremarkable.? ? Adrenal Glands:? Unremarkable.? ? Kidneys and Ureters:? Unremarkable.? ? ? Stomach and Bowel:? Mild changes of uncomplicated diverticulitis at the junction between the descending colon and sigmoid colon.? No free air or free fluid or abscess cavity.? Mild inflammatory change in the adjacent. Peritoneum:? No abnormal intraperitoneal fluid.? No free air.? ? Ventral Wall: ? No hernias.? Abdominal Nodes:? No retroperitoneal or mesenteric adenopathy by size criteria.? Vessels:? Aorta and inferior vena cava are normal in size.? ? PELVIS: Pelvic Organs:? Unremarkable.? ? Bladder:? Unremarkable.? ? Pelvic Nodes: No enlarged lymph nodes.? Miscellaneous:? Unchanged.? Fat containing right inguinal hernia.? Question smaller fat containing left inguinal hernia. ? Bones:? Unremarkable.? IMPRESSION:? ? 1. Mild diverticulosis.? Very mild superimposed acute diverticulitis. ? 2. Very mild diffuse hepatic steatosis. ? 3. Fat containing right inguinal hernia.? Question fat containing left inguinal hernia.? ? ? Dictated by: Marvin Funes M.D. on 10/11/2022 at 13:30 ? ? Approved by: Marvin Funes M.D. on 10/11/2022 at 13:33 ? MDM Narrative Medical decision making narrative: Medical decision making narrative: 32-year-old male presents to the emergency department after being seen at the walk-in clinic for left lower quadrant pain which started 3 days ago. Patient states that he has a history of bright red blood in his stool but denies knowing if he has a hemorrhoid or not. Denies history of IBS, denies nausea vomiting, has a history greater than alcohol beverages per day, states that he has had diverticulitis in the past but but has never had a colonoscopy. Differential diagnoses include, but are not limited to: Diverticulitis, diverticulosis colitis, gastroenteritis, cholecystitis, cholelithiasis, nephrolithiasis pyelonephritis, acute cystitis hemorrhoid, ulcerative colitis, IBS/IBD. I have reviewed the patient's vital signs and nursing notes as well as prior records if available And patient has not been here for similar complaints in the past Lab test results independently reviewed, pertinent findings: My imaging interpretation: Abdomen pelvis with contrast shows mild diverticulosis was very mild and superimposed acute diverticulitis. Diffuse hepatic steatosis with a fat containing right inguinal hernia. I saw and evaluated the patient, CT with contrast ordered as patient has had h istory of diverticulosis and GI bleeding. He was treated with 1 L of normal saline, ketorolac, hydromorphone and Zofran x1. CT positive for mild superimposed acute diverticulitis, will treat for dive rticulitis, patient has a penicillin allergy, we will use ciprofloxacin and Flagyl, patient states that he feels much better, encouraged clear liquid diet for the next few days. Follow-up with [facility] for a colonoscopy when well. Patient's symptoms improved over duration of stay with above-stated therapies. Discussed strict return precautions, patient understands to return emergency department for worsening of his symptoms. Questions are addressed and there is agreement with the plan and for follow-up. Patient is appropriate for outpatient management. MIPS: This encounter doesn't have any diagnosis associated with MIPS criteria. I collaborated with the ED attending physician for INDRA level 2, 3, and some level 4s as appropriate. <Saniya Richard, DO - Last Filed: 10/12/22 14:28> Lab Data Labs: Lab Results 10/11/22 10/11/22 10/11/22 Range/Units 11:35 11:35 12:59 WBC 6.9 (4.5-11.0) X10^3/uL RBC 4.90 (4.5-5.9) X10^6/uL Hgb 15.4 (13.5-17.5) g/dL Hct 44.3 (41-53) % MCV 90.4 (80-100) fL MCH 31.5 (26-34) PG MCHC 34.8 (30-36) % RDW 13.2 (11.6-14.8) % Plt Count 170 (150-400) X10^3/uL Neut % (Auto) 57.2 (50-75) % Lymph % (Auto) 31.5 (25-40) % [place] % (Auto) 8.3 (3-14) % Eos % (Auto) 2.2 (2-4) % Baso % (Auto) 0.8 (0-2) % Neut # (Auto) 3900 (4933-2484) /uL Lymph # (Auto) 2200 (6825-0383) /uL [place] # (Auto) 600 (0-900) /uL Eos # (Auto) 200 (0-450) /uL Baso # (Auto) 100 (0-100) /uL Sodium 140 (137-145) mmol/L Potassium 4.2 (3.4-5.1) mmol/L Chloride 103 (98-107) mmol/L Carbon Dioxide 26 (22-32) mmol/L BUN 13 (9-20) mg/dL Creatinine 0.77 (0.66-1.25) mg/dL Estimated GFR > 60 (>60) mL/min BUN/Creatinine Ratio 16.9 (6-22) Glucose 102 H (70-100) mg/dL Calcium 9.5 (8.4-10.2) mg/dL Total Bilirubin 0.8 (0.2-1.3) mg/dL AST 32 (17-59) IU/L ALT 37 (<50) IU/L Alkaline Phosphatase 82 (38-126) U/L C-Reactive Protein (<1.0) mg/dL Total Protein 8.6 H (6.3-8.2) g/dL Albumin 4.9 (3.5-5.0) g/dL Globulin 3.7 (1.7-4.1) g/dL Albumin/Globulin Ratio 1.3 (1.0-2.8) Lipase 54 (23-300) U/L Urine RBC None seen (0-5/HPF) Urine WBC None seen (0-5/HPF) Urine Bacteria None seen (None) Ur Culture Indicated? Cult not indicated Micro UA Comment Microscopic normal 10/11/22 Range/Units 12:59 WBC (4.5-11.0) X10^3/uL RBC (4.5-5.9) X10^6/uL Hgb (13.5-17.5) g/dL Hct (41-53) % MCV (80-100) fL MCH (26-34) PG MCHC (30-36) % RDW (11.6-14.8) % Plt Count (150-400) X10^3/uL Neut % (Auto) (50-75) % Lymph % (Auto) (25-40) % [place] % (Auto) (3-14) % Eos % (Auto) (2-4) % Baso % (Auto) (0-2) % Neut # (Auto) (9199-1566) /uL Lymph # (Auto) (6729-3182) /uL [place] # (Auto) (0-900) /uL Eos # (Auto) (0-450) /uL Baso # (Auto) (0-100) /uL Sodium (137-145) mmol/L Potassium (3.4-5.1) mmol/L Chloride (98-107) mmol/L Carbon Dioxide (22-32) mmol/L BUN (9-20) mg/dL Creatinine (0.66-1.25) mg/dL Estimated GFR (>60) mL/min BUN/Creatinine Ratio (6-22) Glucose (70-100) mg/dL Calcium (8.4-10.2) mg/dL Total Bilirubin (0.2-1.3) mg/dL AST (17-59) IU/L ALT (<50) IU/L Alkaline Phosphatase (38-126) U/L C-Reactive Protein < 0.5 (<1.0) mg/dL Total Protein (6.3-8.2) g/dL Albumin (3.5-5.0) g/dL Globulin (1.7-4.1) g/dL Albumin/Globulin Ratio (1.0-2.8) Lipase (23-300) U/L Urine RBC (0-5/HPF) Urine WBC (0-5/HPF) Urine Bacteria (None) Ur Culture Indicated? Micro UA Comment Discharge Plan Departure Patient Disposition: Home Clinical Impression: Diverticulitis, Diverticulosis Instructions: Diverticulitis Activity Restrictions/Additional Instructions: *You have been diagnosed with mild diverticulitis with history of diverticulosis. Please treat this with antibiotics for the next 10 days. I am sorry that you have been having this pain, please stay hydrated, avoid alcohol with Flagyl, this will make you sick. Please call the number listed below in bulk to establish care with 1 of the primary care providers., a colonoscopy would be a good idea for your GI bleeding. [facility] does colonoscopies and endoscopies here. You may need a primary care provider before having a colonoscopy but you can call after you are well from your infection and see if you can schedule this with them. Thank you for your patience today, follow-up i s recommended. *What to do: *Please continue to take your regular medications as directed. [x ] New medication prescriptions sent to your pharmacy: [ [facility]] [ ] New medication written as a paper prescription [ ] No new medications given *Please follow up with your primary care provider in 2-3 days, call for an appointment. Let them know you were seen in the Emergency Department and that we asked that you be seen for follow-up. We will electronically transmit a record of today's note if your PCP is in our system *If you do not have a primary care provider please contact [phone] to establish care with one of the [facility] primary care providers. *Return to Emergency Department if you should have any new, worsening, or concerning symptoms, such as [fever greater than 101F, chills, worsening pain, persistent vomiting or other bothersome symptoms]. Prescriptions: New metronidazole 500 mg tablet 500 mg PO TID 10 Days Qty: 30 0RF ciprofloxacin HCl 500 mg tablet 500 mg PO BID 10 Days Qty: 20 0RF ondansetron 4 mg tablet,disintegrating 4 mg PO Q8H PRN (Reason: nausea and vomiting) Qty: 10 0RF No Action benzonatate 100 mg capsule 100 mg PO BID-TID PRN (Reason: cough) Qty: 14 0RF diazepam [Valium] 5 mg tablet 5 mg PO TID PRN (Reason: muscle spasm) Qty: 10 0RF ondansetron 4 mg tablet,disintegrating 4 mg PO Q6H PRN (Reason: nausea and vomiting) Qty: 10 0RF Referrals: [facility] [Outside] ([phone]) Miscellaneous,Doctor, [Primary Care Provider] - Stand Alone Forms: Patient Portal/API <Sainya Richard DO - Last Filed: 10/12/22 14:28> Cosign ED Attending Charline Attestation: I was immediately available in the department for consultation. Documentation has been reviewed.
--- NOTE | 2022-10-11 13:30 | PC.NURSE ---
Patient reports driving self, educated of Hydromorphone order but need for a ride home if given, pt verbalizes understanding, holding at this time and will reassess after Ketorolac.
[2022-10-11 13:47] LABS: C-Reactive Protein Quant < 0.5 mg/dL (<1.0)
[2022-10-11] MEDS: metroNIDAZOLE 500 MG TABLET PO (13:59)
[2022-10-11] MEDS: CIPROFLOXACIN 250 MG TABLET 500 MG PO (13:59)
[2022-10-11 18:39] LABS: Albumin 4.9 g/dL (3.5-5.0); Albumin Globulin Ratio 1.3 (1.0-2.8); Globulin 3.7 g/dL (1.7-4.1)
== END 2022-10-11 14:05 | disposition home or self-care (01) ==
PROVIDERS: Emergency Medicine; Emergency Provider Nurse Practitioner Critical Care Medicine
DX: K57.32 Diverticulitis of large intestine without perforation or abscess without bleeding (principal); R10.2 Pelvic and perineal pain
CPT/HCPCS: 36415; 74177; 80053; 81015; 83690; 85025; 86140; 87086; 87491; 87591; 96374; 99284; J1885

== ENCOUNTER 2022-10-15 08:25 | Emergency (ER) | payer OTHER, SELFPAY ==
[2022-10-15 08:31] VITALS: PULSE 101; O2SAT 97
[2022-10-15 08:32] VITALS: BP 132/87; PULSE 100; RESP 16; TEMP 36.9; O2SAT 99; BMI 33.5
[2022-10-15 08:55] LABS: Add Manual Diff / Slide Review NO; Basophils Absolute Auto 0 /uL (0-100); Basophils Percent Auto 0.8 % (0-2); Eosinophils Absolute Auto 100 /uL (0-450); Eosinophils Percent Auto 2.4 % (2-4); Hematocrit 47.2 % (41-53); Hemoglobin 16.6 g/dL (13.5-17.5); Lymphocytes Absolute Auto 1500 /uL (1100-4500); Lymphocytes Percent Auto 25.1 % (25-40); Mean Corpuscular HGB Conc 35.2 % (30-36); Mean Corpuscular Hemoglobin 31.6 PG (26-34); Mean Corpuscular Volume 89.7 fL (80-100); Monocytes Absolute Auto 500 /uL (0-900); Monocytes Percent Auto 7.7 % (3-14); Neutrophils Absolute Auto 3900 /uL (1500-7000); Platelet Count 168 X10^3/uL (150-400); Red Blood Cell Count 5.27 X10^6/uL (4.5-5.9); White Blood Cell Count 6.1 X10^3/uL (4.5-11.0)
[2022-10-15 08:58] LABS: Alanine Aminotransferase 54 IU/L (<50); Albumin 4.9 g/dL (3.5-5.0); Albumin Globulin Ratio 1.2 (1.0-2.8); Alkaline Phosphatase 79 U/L (38-126); Aspartate Aminotransferase 40 IU/L (17-59); BUN Creatinine Ratio 21.2 (6-22); Bilirubin Total 0.7 mg/dL (0.2-1.3); Blood Urea Nitrogen 18 mg/dL (9-20); Calcium 9.8 mg/dL (8.4-10.2); Carbon Dioxide 23 mmol/L (22-32); Chloride 102 mmol/L (98-107); Estimated Glomerular Filt Rate > 60 mL/min (>60); Globulin 4.1 g/dL (1.7-4.1); Glucose 119 mg/dL (70-100); HEMOLYSIS < 15 (0-50); Lipase 55 U/L (23-300); Potassium 4.4 mmol/L (3.4-5.1); Sodium 137 mmol/L (137-145)
[2022-10-15 09:00] VITALS: PULSE 85; O2SAT 97
[2022-10-15 09:30] VITALS: PULSE 93; O2SAT 97
--- NOTE | 2022-10-15 09:43 | ED_ITS ---
HPI - Abdominal Pain General Chief Complaint: Abdominal Pain Stated Complaint: lower abdominal pain Time Seen by Provider: 10/15/22 09:23 History of Present Illness HPI narrative: Patient drove herself here from home. Complains of left lower quadrant pain. Ongoing for the past 7 days. Seen here 4 days ago diagnosed with diverticulitis and prescription for Cipro and Flagyl was given. However patient did not receive his Flagyl. Only taken Cipro. He took this morning dose of Cipro. No vomiting. No bloody or black stools. No prior history of diverticulitis. No fever chills. Patient does not want any opiates. He does agree with Toradol. He does agree for repeat CT scan imaging due to worsening symptoms and not having Flagyl. Related Data Previous Rx's Medication Instructions Recorded benzonatate 100 mg capsule 100 mg PO BID-TID PRN cough #14 08/22/21 caps diazepam 5 mg tablet (Valium) 5 mg PO TID PRN muscle spasm #10 11/19/21 tabs ondansetron 4 mg disintegrating 4 mg PO Q6H PRN nausea and 11/19/21 tablet vomiting #10 tabs ciprofloxacin HCl 500 mg tablet 500 mg PO BID 10 days #20 tabs 10/11/22 metronidazole 500 mg tablet 500 mg PO TID 10 days #30 tabs 10/11/22 ondansetron 4 mg disintegrating 4 mg PO Q8H PRN nausea and 10/11/22 tablet vomiting #10 tabs ciprofloxacin HCl 500 mg tablet 500 mg PO BID #8 tabs 10/15/22 (Cipro) metronidazole 500 mg tablet 500 mg PO TID #30 tabs 10/15/22 Allergies Allergy/AdvReac Type Severity Reaction Status Date / Time Penicillins Allergy Mild Unknown Verified 10/11/22 11:34 Review of Systems Review of Systems Narrative: GENERAL: negative chills, fatigue, malaise, fever, sweats. HEENT: negative sinus pain, ear pain, sore throat RESPIRATORY: negative dyspnea, cough CARDIOVASCULAR: negative chest pain, palpitations GASTROINTESTINAL: negative nausea, vomiting, positive abdominal pain : negative dysuria, frequency, hematuria MUSCULOSKELETAL: negative muscle or bony pain SKIN: negative rash, skin lesions NEUROLOGIC: negative weakness, numbness ROS Unobtainable: All systems reviewed & are unremarkable except as noted in HPI and below Patient History Social History Smoking Status: Current every day smoker Smoking Status: Current every day smoker alcohol intake frequency: 3 or more drinks per day Alcohol type: beer and hard liquor Substance Use Type: does not use Exam Narrative Exam Narrative: GENERAL: in no distress, not toxic not dyspneic HEAD: Normocephalic. EYES: Pupils equal round ENT: Mucous membranes moist. NECK: Trachea midline. CARDIOVASCULAR: Regular rate and rhythm without murmurs RESPIRATORY: Clear to auscultation. Breath sounds equal bilaterally. No wheezes, rales, or rhonchi. GASTROINTESTINAL: Abdomen soft, reproducible left lower quadrant tenderness, no peritoneal signs. Bowel sounds are present. No CVA tenderness EXTREMITIES: No gross deformities. BACK: No flank tenderness. NEURO: AOx4. SKIN: Warm and dry PSYCH: Not anxious, is cooperative Initial Vital Signs Initial Vital Signs: Vital Signs Pulse Rate 101 H 10/15/22 08:31 Pulse Oximetry 97 10/15/22 08:31 Course Orders Ordered: ED Orders 10/15/22 08:35 EKG-12 Lead Stat 10/15/22 08:37 Complete Blood Count AUTO DIFF Stat Comprehensive Metabolic Panel Stat Lipase Stat 10/15/22 09:55 CT abdomen pelvis w con Stat Discontinued Medications Metronidazole (Flagyl) 500 mg in 100 mls @ 100 mls/hr IV NOW ONE Stop: 10/15/22 10:37 Last Admin: 10/15/22 09:52 Dose: 100 mls/hr Documented By: SHENG Sodium Chloride (Normal Saline 0.9%) 1,000 mls @ 1,000 mls/hr IV BOLUS ONE Stop: 10/15/22 10:37 Last Admin: 10/15/22 09:54 Dose: 1,000 mls/hr Documented By: SHENG Ketorolac Tromethamine (Ketorolac 30 Mg/Ml Vial) 15 mg IV NOW ONE Stop: 10/15/22 09:39 Last Admin: 10/15/22 09:54 Dose: 15 mg Documented By: SHENG Ondansetron HCl (Ondansetron 4 Mg Odt) 4 mg PO NOW PRN PRN Reason: Nausea And Vomiting Ondansetron HCl (Ondansetron 4 Mg/2 Ml Inj) 4 mg IV NOW PRN PRN Reason: Nausea And Vomiting Ondansetron HCl (Ondansetron 4 Mg/2 Ml Inj) 4 mg IV NOW ONE Stop: 10/15/22 09:39 Last Admin: 10/15/22 09:56 Dose: Not Given Documented By: CTS Vital Signs Vital signs: Vital Signs - 8 hr 10/15/22 08:32 10/15/22 08:31 10/15/22 09:00 Temperature 98.4 F Pulse Rate 100 H 101 H 85 Respiratory Rate 16 Blood Pressure 132/87 Pulse Oximetry 99 97 97 Oxygen Delivery Method Room Air 10/15/22 09:30 10/15/22 10:57 Temperature Pulse Rate 93 H 95 H Respiratory Rate 19 Blood Pressure 130/95 H Pulse Oximetry 97 97 Oxygen Delivery Method MDM - Abdominal Pain Differential Diagnosis Differential diagnosis: Likely abdominal pain, acute appendicitis, diverticulitis and small bowel obstruction Lab Data 10/15/22 08:37 10/15/22 08:37 Labs: Lab Results 10/15/22 10/15/22 Range/Units 08:37 08:37 WBC 6.1 (4.5-11.0) X10^3/uL RBC 5.27 (4.5-5.9) X10^6/uL Hgb 16.6 (13.5-17.5) g/dL Hct 47.2 (41-53) % MCV 89.7 (80-100) fL MCH 31.6 (26-34) PG MCHC 35.2 (30-36) % RDW 13.0 (11.6-14.8) % Plt Count 168 (150-400) X10^3/uL Neut % (Auto) 64.0 (50-75) % Lymph % (Auto) 25.1 (25-40) % [place] % (Auto) 7.7 (3-14) % Eos % (Auto) 2.4 (2-4) % Baso % (Auto) 0.8 (0-2) % Neut # (Auto) 3900 (7438-1484) /uL Lymph # (Auto) 1500 (9179-9844) /uL [place] # (Auto) 500 (0-900) /uL Eos # (Auto) 100 (0-450) /uL Baso # (Auto) 0 (0-100) /uL Sodium 137 (137-145) mmol/L Potassium 4.4 (3.4-5.1) mmol/L Chloride 102 (98-107) mmol/L Carbon Dioxide 23 (22-32) mmol/L BUN 18 (9-20) mg/dL Creatinine 0.85 (0.66-1.25) mg/dL Estimated GFR > 60 (>60) mL/min BUN/Creatinine Ratio 21.2 (6-22) Glucose 119 H (70-100) mg/dL Calcium 9.8 (8.4-10.2) mg/dL Total Bilirubin 0.7 (0.2-1.3) mg/dL AST 40 (17-59) IU/L ALT 54 H (<50) IU/L Alkaline Phosphatase 79 (38-126) U/L Total Protein 9.0 H (6.3-8.2) g/dL Albumin 4.9 (3.5-5.0) g/dL Globulin 4.1 (1.7-4.1) g/dL Albumin/Globulin Ratio 1.2 (1.0-2.8) Lipase 55 (23-300) U/L Imaging Data CT scan - abdomen/pelvis: Radiologist's Impression: [place] [address] CT Scan Report Signed Patient: Curt Dover MR#: [id number] : 1990 Acct:[id number] Age/Sex: 32 / M Date of Service: 10/15/22 Loc: Accession Number: [id number] ?? Procedure: CT abdomen pelvis w con Ordering Provider: Tony Alonzo MD PROCEDURE:? CT ABDOMEN PELVIS W CON ? INDICATIONS:? IV contrast only/left lower quadrant pain/diverticulitis ? TECHNIQUE:? After the administration of intravenous contrast, axial sections acquired from the lung bases to the pubic symphysis.? Coronal and sagittal reformats were performed.? For radiation dose reduction, the following was used:? automated exposure control, adjustment of mA and/or kV according to patient size.? ? COMPARISON:? [facility], CT, CT ABDOMEN PELVIS W CON, 10/11/2022, 13:08. ? FINDINGS:? Image quality:? Good ? Lower chest:? No significant airspace disease.? Nonspecific slightly patulous distal esophagus. ? Solid organs:? Possible hepatic steatosis.? Gallbladder is unremarkable.? No pathologic dilation of the biliary tree or pancreatic duct.? No splenomegaly.? No adrenal nodules.? No hydronephrosis. ? Vessels and lymph nodes:? No abdominal aortic aneurysm.? Similar ectatic appearance of the left portal venous bifurcation. No pathologic adenopathy by size criteria. ? Bowel and peritoneum:? No bowel obstruction.? Mild persistent inflammation surrounding the proximal sigmoid colon appendix is within normal limits.? There are prominent ileocolic lymph nodes in the right lower quadrant. ? Body wall:? Small possible fat containing umbilical hernia. ? Pelvis:? Prostate and bladder not well evaluated, overall unremarkable.? Small possible fat containing right inguinal hernia. ? Bones:? No acute or suspicious osseous finding. ? IMPRESSION:? Trace persistent inflammation in the proximal sigmoid colon, similar to prior.? In addition, similar prominent ileocolic lymph nodes in the right hemiabdomen, which can be seen with mesenteric adenitis.? No acute abdominal pelvic pathology otherwise.? Other findings as above. ? ? Dictated by: River Pryor M.D. on 10/15/2022 at 10:00 ? ? Approved by: River Pryor M.D. on 10/15/2022 at 10:06 ? [facility] Narrative Medical decision making narrative: Patient drove herself here from home. Complains of left lower quadrant pain. Ongoing for the past 7 days. Seen here 4 days ago diagnosed with diverticulitis and prescription for Cipro and Flagyl was given. However patient did not receive his Flagyl. Only taken Cipro. He took this morning dose of Cipro. No vomiting. No bloody or black stools. No prior history of diverticulitis. No fever chills. Patient does not want any opiates. He does agree with Toradol. He does agree for repeat CT scan imaging due to worsening symptoms and not having Flagyl. After exam past CBCs CMP CT abdomen pelvis, IV fluids, Toradol, Flagyl, Zofran has been ordered. MDM CC: Abdominal pain Complicating co-morbidities: Diverticulitis Data collected from: Patient Medical records reviewed: ER visit from [address] images, patient was prescribed Cipro twice a day and Flagyl 3 times a day as well as Zofran Differential considered: Includes but not limited to diver ticulitis/perforation/abscess/diverticulosis Exam documented above, pertinent findings include: Left lower quadrant pain Lab Test results independently reviewed as above. Pertinent findings: CBC without leukocytosis, CMP without acute renal injury. Imaging studies independently reviewed: CT abdomen pelvis with IV contrast persistent sigmoid diverticulitis. No abscess. Treatments: Toradol/Flagyl/normal saline Re-evaluations: 10:20 a.m.. Reviewed results with patient. Pain is controlled. I will write prescription for Flagyl for patient to continue and supplement additional 4 days of Cipro. Discussion: Appropriate for discharge home. Laboratory studies and imaging otherwise reassuring. Patient symptoms have not significantly changed due to lack of Flagyl that was supposed to be started 4 days ago. Patient not toxic. Return precautions reviewed with patient. Referral for General surgery for future colonoscopy provided. Patient desires discharge home. I will print off prescriptions for patient Diagnosis: Acute diverticulitis Disposition: see below, along with detailed discharge instructions that have been reviewed with patient as well as indications for ED re-evaluation and additional outpatient follow up Discharge Plan Departure Patient Disposition: Home Clinical Impression: Diverticulitis Instructions: DI for Diverticulitis Activity Restrictions/Additional Instructions: Please have your prescription Flagyl/metronidazole filled today and continue today. Additional 4 more days of Cipro prescription has been provided for you to continue with this other antibiotic. Call provided general surgery office today for future scheduling of colonoscopy. Return if worse if any questions or concerns. Prescriptions: New metronidazole 500 mg tablet 500 mg PO TID Qty: 30 0RF ciprofloxacin HCl [Cipro] 500 mg tablet 500 mg PO BID Qty: 8 0RF No Action benzonatate 100 mg capsule 100 mg PO BID-TID PRN (Reason: cough) Qty: 14 0RF diazepam [Valium] 5 mg tablet 5 mg PO TID PRN (Reason: muscle spasm) Qty: 10 0RF ondansetron 4 mg tablet,disintegrating 4 mg PO Q6H PRN (Reason: nausea and vomiting) Qty: 10 0RF metronidazole 500 mg tablet 500 mg PO TID 10 Days Qty: 30 0RF ciprofloxacin HCl 500 mg tablet 500 mg PO BID 10 Days Qty: 20 0RF ondansetron 4 mg tablet,disintegrating 4 mg PO Q8H PRN (Reason: nausea and vomiting) Qty: 10 0RF Referrals: Cassandra Whiteside MD [Physician] - Miscellaneous,MD Zara [Primary Care Provider] - Stand Alone Forms: Patient Portal/API, Work Release Note
[2022-10-15] MEDS: metroNIDAZOLE 500 MG/100 ML PIGGYBACK 100 MG IV (09:52)
[2022-10-15] MEDS: KETOROLAC 30 MG/ML VIAL 15 MG IV (09:54)
[2022-10-15] MEDS: SODIUM CHLORIDE 0.9% 1,000 ML 1000 ML IV (09:54)
--- NOTE | 2022-10-15 09:55 | DI.CT.S_ITS ---
PROCEDURE: CT ABDOMEN PELVIS W CON INDICATIONS: IV contrast only/left lower quadrant pain/diverticulitis TECHNIQUE: After the administration of intravenous contrast, axial sections acquired from the lung bases to the pubic symphysis. Coronal and sagittal reformats were performed. For radiation dose reduction, the following was used: automated exposure control, adjustment of mA and/or kV according to patient size. COMPARISON: [facility], CT, CT ABDOMEN PELVIS W CON, 10/11/2022, 13:08. FINDINGS: Image quality: Good Lower chest: No significant airspace disease. Nonspecific slightly patulous distal esophagus. Solid organs: Possible hepatic steatosis. Gallbladder is unremarkable. No pathologic dilation of the biliary tree or pancreatic duct. No splenomegaly. No adrenal nodules. No hydronephrosis. Vessels and lymph nodes: No abdominal aortic aneurysm. Similar ectatic appearance of the left portal venous bifurcation. No pathologic adenopathy by size criteria. Bowel and peritoneum: No bowel obstruction. Mild persistent inflammation surrounding the proximal sigmoid colon appendix is within normal limits. There are prominent ileocolic lymph nodes in the right lower quadrant. Body wall: Small possible fat containing umbilical hernia. Pelvis: Prostate and bladder not well evaluated, overall unremarkable. Small possible fat containing right inguinal hernia. Bones: No acute or suspicious osseous finding. IMPRESSION: Trace persistent inflammation in the proximal sigmoid colon, similar to prior. In addition, similar prominent ileocolic lymph nodes in the right hemiabdomen, which can be seen with mesenteric adenitis. No acute abdominal pelvic pathology otherwise. Other findings as above. Dictated by: River Pryor M.D. on 10/15/2022 at 10:00 Approved by: River Pryor M.D. on 10/15/2022 at 10:06
[2022-10-15 10:57] VITALS: BP 130/95; PULSE 95; RESP 19; O2SAT 97
== END 2022-10-15 10:58 | disposition home or self-care (01) ==
PROVIDERS: Emergency Provider Emergency Medicine
DX: K57.92 Diverticulitis of intestine, part unspecified, without perforation or abscess without bleeding (principal)
CPT/HCPCS: 36415; 74177; 80053; 83690; 85025; 96365; 96375; 99284; J1885; Q9967

== ENCOUNTER 2022-11-26 18:24 | Emergency (ER) | payer OTHER, SELFPAY ==
[2022-11-26 18:34] VITALS: BP 125/91; PULSE 89; RESP 15; TEMP 36.8; O2SAT 98; BMI 31.1
[2022-11-26 19:46] LABS: Adenovirus Not Detected (Not Detect); B. parapertussis Not Detected (Not Detecte); Bordetella pertussis Not Detected (Not Detecte); Chlamydophila pneumoniae Not Detected (Not Detect); Coronavirus 229E Not Detected (Not Detect); Coronavirus HKU1 Not Detected (Not Detect); Coronavirus NL 63 Not Detected (Not Detect); Coronavirus OC43 Not Detected (Not Detect); Human Metapneumovirus Not Detected (Not Detect); Human Rhinovirus/Enterovirus Not Detected (Not Detect); Influenza A Not Detected (Not Detect); Influenza B Not Detected (Not Detect); Mycoplasma pneumoniae Not Detected (Not Detect); Parainfluenza Virus 1 Not Detected (Not Detect); Parainfluenza Virus 2 Not Detected (Not Detect); Parainfluenza Virus 3 Not Detected (Not Detect); Parainfluenza Virus 4 Not Detected (Not Detect); Respiratory Syncytial Virus Not Detected (Not Detect); SARS- CoV-2 Not Detected (Not Detecte)
[2022-11-26 21:52] VITALS: BP 122/87; PULSE 79; O2SAT 99
--- NOTE | 2022-11-26 22:09 | ED_ITS ---
HPI - General Adult General Chief complaint: Upper Respiratory Symptoms Stated complaint: Body aches, dizziness, covid+ 4days ago Time Seen by Provider: 11/26/22 22:03 Source: patient Mode of arrival: Ambulatory History of Present Illness HPI narrative: Patient is a 32-year-old male. Approximately 4 days ago he tested positive for COVID. Tested negative for COVID yesterday. Since that time he has had severe body aches to include both his upper and lower extremities. He is taken Tylenol and ibuprofen with only minimal improvement. Denies any fevers. He does describe muscle pain and also joint pain. No skin rashes. Related Data Previous Rx's Medication Instructions Recorded benzonatate 100 mg capsule 100 mg PO BID-TID PRN cough #14 08/22/21 caps diazepam 5 mg tablet (Valium) 5 mg PO TID PRN muscle spasm #10 11/19/21 tabs ondansetron 4 mg disintegrating 4 mg PO Q6H PRN nausea and 11/19/21 tablet vomiting #10 tabs ondansetron 4 mg disintegrating 4 mg PO Q8H PRN nausea and 10/11/22 tablet vomiting #10 tabs ciprofloxacin HCl 500 mg tablet 500 mg PO BID #8 tabs 10/15/22 (Cipro) metronidazole 500 mg tablet 500 mg PO TID #30 tabs 10/15/22 Allergies Allergy/AdvReac Type Severity Reaction Status Date / Time Penicillins Allergy Mild Unknown Verified 11/26/22 18:34 Review of Systems Constitutional Constitutional: Reports system reviewed and no additional complaints, except as documented Musculoskeletal Musculoskeletal: Reports system reviewed and no additional complaints, except as documented Integumentary/Breasts Skin/Breast: Reports system reviewed and no additional complaints, except as documented Neurologic Neurologic: Reports system reviewed and no additional complaints, except as documented Patient History Social History Smoking Status: Current every day smoker Smoking Status: Current every day smoker alcohol intake frequency: 3 or more drinks per day Alcohol type: beer and hard liquor Substance Use Type: does not use Exam Initial Vital Signs Initial Vital Signs: Vital Signs Temperature 98.3 F 11/26/22 18:34 Pulse Rate 89 11/26/22 18:34 Respiratory Rate 15 11/26/22 18:34 Blood Pressure 125/91 H 11/26/22 18:34 Pulse Oximetry 98 11/26/22 18:34 Oxygen Delivery Method Room Air 11/26/22 18:34 HENMT Head: normal to inspection and normocephalic Resp Effort & Inspection: normal respiratory effort Cardio Rate: regular rate Skin General: no rashes or lesions noted Extrem General: capillary refill normal Other: Some discomfort with palpation of major muscle groups. Patient is able to ambulate. No specific joint tenderness. Course Orders Ordered: ED Orders 11/26/22 22:50 Basic Metabolic Panel Stat Complete Blood Count AUTO DIFF Stat Creatine Kinase Stat Vital Signs Vital signs: Vital Signs - 8 hr 11/26/22 21:52 11/26/22 23:56 Pulse Rate 79 74 Blood Pressure 122/87 136/88 Pulse Oximetry 99 98 Oxygen Delivery Method Room Air Room Air Medical Decision Making Lab Data Lab results reviewed: Yes I reviewed the patient's lab results. 11/26/22 22:50 11/26/22 22:50 Labs: Lab Results 11/26/22 11/26/22 11/26/22 Range/Units 18:37 22:50 22:50 WBC 8.0 (4.5-11.0) X10^3/uL RBC 4.82 (4.5-5.9) X10^6/uL Hgb 15.1 (13.5-17.5) g/dL Hct 43.3 (41-53) % MCV 89.9 (80-100) fL MCH 31.2 (26-34) PG MCHC 34.7 (30-36) % RDW 13.4 (11.6-14.8) % Plt Count 171 (150-400) X10^3/uL Neut % (Auto) 54.3 (50-75) % Lymph % (Auto) 35.0 (25-40) % [place] % (Auto) 8.3 (3-14) % Eos % (Auto) 1.5 L (2-4) % Baso % (Auto) 0.9 (0-2) % Neut # (Auto) 4400 (1767-9475) /uL Lymph # (Auto) 2800 (6266-5620) /uL [place] # (Auto) 700 (0-900) /uL Eos # (Auto) 100 (0-450) /uL Baso # (Auto) 100 (0-100) /uL Sodium 135 L (137-145) mmol/L Potassium 4.2 (3.4-5.1) mmol/L Chloride 103 (98-107) mmol/L Carbon Dioxide 22 (22-32) mmol/L BUN 13 (9-20) mg/dL Creatinine 0.72 (0.66-1.25) mg/dL Estimated GFR > 60 (>60) mL/min BUN/Creatinine Ratio 18.1 (6-22) Glucose 107 H (70-100) mg/dL Calcium 9.4 (8.4-10.2) mg/dL Total Creatine Kinase 61 (55-170) U/L Chlamy pneumoniae PCR Not detected (Not Detect) Adenovirus (PCR) Not detected (Not Detect) B. pertussis DNA (PCR) Not detected (Not Detecte) B.parapertussis DNA PCR Not detected (Not Detecte) Coronavirus OC43 (PCR) Not detected (Not Detect) Coronavirus HKU1 (PCR) Not detected (Not Detect) Coronavirus 229E (PCR) Not detected (Not Detect) SARS-CoV-2 (PCR) Not detected (Not Detecte) Coronavirus NL63 (PCR) Not detected (Not Detect) Human Metapneumovir PCR Not detected (Not Detect) Influenza Type A (PCR) Not detected (Not Detect) Influenza Type B (PCR) Not detected (Not Detect) M. pneumoniae (PCR) Not detected (Not Detect) Parainfluenza 1 (PCR) Not detected (Not Detect) Parainfluenza 2 (PCR) Not detected (Not Detect) Parainfluenza 3 (PCR) Not detected (Not Detect) Parainfluenza 4 (PCR) Not detected (Not Detect) RSV (PCR) Not detected (Not Detect) Entero/Rhino (PCR) Not detected (Not Detect) MDM Narrative Medical decision making narrative: Patient's labs are unremarkable. No signs of rhabdo. Patient does not have specific muscle tenderness that is more generalized. No specific joint tenderness is generalized. I suspect this is related to his recent COVID infection. No indication for antibiotics. No indication for further workup here in the emergency department. Will discharged home with instructions for Tylenol and ibuprofen and increasing his fluids and following up if his symptoms worsened. He expressed understanding and agreement. Discharge Plan Departure Patient Disposition: Home Clinical Impression: Myalgia Activity Restrictions/Additional Instructions: The recommend that you increase your fluid intake as this may help with the muscle pain. You can also do Tylenol and ibuprofen. If your symptoms worsen or you develop any new symptoms please return to the emergency department for further evaluation. Prescriptions: No Action benzonatate 100 mg capsule 100 mg PO BID-TID PRN (Reason: cough) Qty: 14 0RF metronidazole 500 mg tablet 500 mg PO TID Qty: 30 0RF ciprofloxacin HCl [Cipro] 500 mg tablet 500 mg PO BID Qty: 8 0RF diazepam [Valium] 5 mg tablet 5 mg PO TID PRN (Reason: muscle spasm) Qty: 10 0RF ondansetron 4 mg tablet,disintegrating 4 mg PO Q6H PRN (Reason: nausea and vomiting) Qty: 10 0RF ondansetron 4 mg tablet,disintegrating 4 mg PO Q8H PRN (Reason: nausea and vomiting) Qty: 10 0RF Referrals: Miscellaneous,Doctor, MD [Primary Care Provider] - Stand Alone Forms: Patient Portal/API, Work Release Note
[2022-11-26 23:01] LABS: Add Manual Diff / Slide Review NO; Basophils Absolute Auto 100 /uL (0-100); Basophils Percent Auto 0.9 % (0-2); Eosinophils Absolute Auto 100 /uL (0-450); Eosinophils Percent Auto 1.5 % (2-4); Hematocrit 43.3 % (41-53); Hemoglobin 15.1 g/dL (13.5-17.5); Lymphocytes Absolute Auto 2800 /uL (1100-4500); Mean Corpuscular HGB Conc 34.7 % (30-36); Mean Corpuscular Hemoglobin 31.2 PG (26-34); Mean Corpuscular Volume 89.9 fL (80-100); Monocytes Absolute Auto 700 /uL (0-900); Monocytes Percent Auto 8.3 % (3-14); Neutrophils Absolute Auto 4400 /uL (1500-7000); Neutrophils Percent Auto 54.3 % (50-75); Platelet Count 171 X10^3/uL (150-400); Red Blood Cell Count 4.82 X10^6/uL (4.5-5.9); Red Cell Distribution Width 13.4 % (11.6-14.8)
[2022-11-26 23:12] LABS: BUN Creatinine Ratio 18.1 (6-22); Blood Urea Nitrogen 13 mg/dL (9-20); Calcium 9.4 mg/dL (8.4-10.2); Carbon Dioxide 22 mmol/L (22-32); Chloride 103 mmol/L (98-107); Creatine Kinase 61 U/L (55-170); Estimated Glomerular Filt Rate > 60 mL/min (>60); Glucose 107 mg/dL (70-100); HEMOLYSIS < 15 (0-50); Potassium 4.2 mmol/L (3.4-5.1); Sodium 135 mmol/L (137-145)
[2022-11-26 23:56] VITALS: BP 136/88; PULSE 74; O2SAT 98
== END 2022-11-26 23:58 | disposition home or self-care (01) ==
PROVIDERS: Emergency Medicine; Emergency Provider Emergency Medicine
DX: M79.10 Myalgia, unspecified site (principal); Z20.822 Contact with and (suspected) exposure to COVID-19; Z86.16 Personal history of COVID-19
CPT/HCPCS: 36415; 80048; 82550; 85025; 87633; 99283

== ENCOUNTER → 2023-05-30 08:39 | Outpatient (CLI) | payer OTHER, SELFPAY ==
[2023-05-30 09:35] LABS: Influenza A - CEPHEID Flu A NEGATIVE (NEGATIVE); Influenza B - CEPHEID Flu B NEGATIVE (NEGATIVE); Respiratory Syncytial Virus Negative (Negative)
[2023-05-30 09:36] LABS: COVID-19 CEPHEID 4-PLEX PCR Negative (Negative)
== END ==
PROVIDERS: Visit Provider Nurse Practitioner Family
DX: J06.9 Acute upper respiratory infection, unspecified (principal); Z20.822 Contact with and (suspected) exposure to COVID-19
CPT/HCPCS: 0241U

== ENCOUNTER 2024-01-27 09:19 | Emergency (ER) | payer OTHER, SELFPAY ==
[2024-01-27 09:25] VITALS: BP 133/95; PULSE 67; RESP 19; TEMP 36.5; O2SAT 95; BMI 32.5
--- NOTE | 2024-01-27 10:10 | DI.RAD.S_ITS ---
PROCEDURE: XR SHOULDER LT MIN 2V INDICATIONS: pain/injury TECHNIQUE: 3 views of the shoulder were acquired. COMPARISON: None. FINDINGS: Bones: No fractures or dislocations. No suspicious bony lesions. Visualized ribs appear intact. Soft tissues: No suspicious soft tissue calcifications. IMPRESSION: No acute bony abnormality. Dictated by: Marvin Funes M.D. on 01/27/2024 at 10:38 Approved by: Marvin Funes M.D. on 01/27/2024 at 10:38
--- NOTE | 2024-01-27 10:10 | DI.RAD.S_ITS ---
PROCEDURE: XR CERVICAL SPINE 2V OR 3V INDICATIONS: Pain/injury TECHNIQUE: 3 view(s) of the cervical spine were acquired. COMPARISON: None. FINDINGS: Bones: No fractures or dislocations to the T1 level. The lateral masses of C1 appear intact on the odontoid view. No suspicious bony lesions. Soft tissues: No prevertebral soft tissue swelling. IMPRESSION: Unremarkable cervical spine plain films. No acute cervical fracture or dislocation. Dictated by: Marvin Funes M.D. on 01/27/2024 at 10:39 Approved by: Marvin Funes M.D. on 01/27/2024 at 10:39
--- NOTE | 2024-01-27 10:12 | ED.NECK ---
HPI - Neck Pain/Injury General Chief Complaint: Neck Pain/Injury Stated Complaint: neck/head/l arm pain work related Time Seen by Provider: 01/27/24 10:04 Mode of arrival: Family Vehicle History of Present Illness HPI Narrative: Patient here for left-sided neck pain radiating to his left scapula and left arm with pain and tingling to his hand and fingers. Patient states this occurred at work yesterday. He was carrying a heavy trash can and was putting it down but let go too quickly and it pulled on his left arm and neck. Patient seen here November 19, 2021 for injury to the head and straining his neck when he is working on a vehicle. He had CT head and CT cervical spine at that time. Injury occurred November 16, 2021. Has been doing well since then. Patient states he drove here however his can pick him up. He is allergic to steroids. He did try left over cyclobenzaprine 5 mg without relief. He has been taking ibuprofen as well. Left shoulder to fingertips exposed. Neck exposed. Related Data Previous Rx's Medication Instructions Recorded benzonatate 100 mg capsule 100 mg PO BID-TID PRN cough #14 08/22/21 caps diazepam 5 mg tablet (Valium) 5 mg PO TID PRN muscle spasm #10 11/19/21 tabs ondansetron 4 mg disintegrating 4 mg PO Q6H PRN nausea and 11/19/21 tablet vomiting #10 tabs ondansetron 4 mg disintegrating 4 mg PO Q8H PRN nausea and 10/11/22 tablet vomiting #10 tabs ciprofloxacin HCl 500 mg tablet 500 mg PO BID #8 tabs 10/15/22 (Cipro) metronidazole 500 mg tablet 500 mg PO TID #30 tabs 10/15/22 cyclobenzaprine 5 mg tablet 5 mg PO TID PRN muscle spasm #20 05/30/23 tabs diazepam 10 mg tablet (Valium) 10 mg PO BID PRN muscle spasm #14 01/27/24 tabs ibuprofen 800 mg tablet 800 mg PO Q8H PRN pain #20 tabs 01/27/24 Allergies Allergy/AdvReac Type Severity Reaction Status Date / Time Penicillins Allergy Mild Unknown Verified 01/27/24 09:38 steroid AdvReac Weakness Uncoded 01/27/24 09:39 Review of Systems Review of Systems Narrative: GENERAL: negative chills, fatigue, malaise, fever, sweats. HEENT: negative sinus pain, ear pain, sore throat RESPIRATORY: negative dyspnea, cough CARDIOVASCULAR: negative chest pain, palpitations GASTROINTESTINAL: negative nausea, vomiting, abdominal pain : negative dysuria, frequency, hematuria MUSCULOSKELETAL: Positive neck pain and muscle or bony pain SKIN: negative rash, skin lesions NEUROLOGIC: negative weakness, positive tingling in numbness Patient History Social History Smoking Status: Current every day smoker Smoking Status: Current every day smoker tobacco type: cigarettes alcohol intake frequency: 0-2 drinks per day Alcohol type: beer and hard liquor Substance Use Type: does not use Exam Narrative Exam Narrative: GENERAL: in no distress, not toxic not dyspneic HEAD: Normocephalic. EYES: Pupils equal round ENT: Mucous membranes moist. NECK: Trachea midline. No midline tenderness or step-off of the cervical spine. There is tenderness to the left paracervical muscles extending to the left trapezius. Pain with range of motion actively. CARDIOVASCULAR: Regular rate and rhythm RESPIRATORY: Clear to auscultation. Breath sounds equal bilaterally. No wheezes, rales, or rhonchi. GASTROINTESTINAL: Abdomen soft, non-tender EXTREMITIES: No gross deformities. Nontender on palpation of the left shoulder elbow and wrist. Light touch intact to deltoid and fingertips and thumb. Strong unix administrator and radial pulse with brisk cap refills. There is pain with the shoulder with internal rotation external rotation forward flexion and bringing his hand above his head. BACK: No flank tenderness. NEURO: AOx4. SKIN: Warm and dry PSYCH: Not anxious, is cooperative Initial Vital Signs Initial Vital Signs: Vital Signs Temperature 97.7 F 01/27/24 09:25 Pulse Rate 67 01/27/24 09:25 Respiratory Rate 19 01/27/24 09:25 Blood Pressure 133/95 H 01/27/24 09:25 Pulse Oximetry 95 01/27/24 09:25 Oxygen Delivery Method Room Air 01/27/24 09:25 Course Orders Ordered: Discontinued Medications Ketorolac Tromethamine (Ketorolac 30 Mg/Ml Vial) 30 mg IM NOW ONE Stop: 01/27/24 10:11 Last Admin: 01/27/24 10:19 Dose: 30 mg Documented By: JUAN RAMON Ondansetron HCl (Ondansetron 4 Mg Odt) 4 mg SL NOW ONE Stop: 01/27/24 10:11 Last Admin: 01/27/24 11:37 Dose: Not Given Documented By: JUAN RAMON Oxycodone/Acetaminophen (Oxycodone/Acetaminophen 5/325 Tablet) 2 tab PO NOW ONE Stop: 01/27/24 10:11 Last Admin: 01/27/24 10:18 Dose: 2 tab Documented By: JUAN RAMON Vital Signs Vital signs: Vital Signs - 8 hr 01/27/24 09:25 Temperature 97.7 F Pulse Rate 67 Respiratory Rate 19 Blood Pressure 133/95 H Pulse Oximetry 95 Oxygen Delivery Method Room Air MDM - Neck Pain/Injury Imaging Data Extremity x-ray #1: Radiologist's Impression: [address] [address] XRay Report Signed Patient: Curt Dover MR#: [id number] : 1990 Acct:[id number] Age/Sex: 33 / M Date of Service: 01/27/24 Loc: ED Accession Number: [id number] Procedure: XR shoulder LT min 2V Ordering Provider: Tony Alonzo MD PROCEDURE: XR SHOULDER LT MIN 2V INDICATIONS: pain/injury TECHNIQUE: 3 views of the shoulder were acquired. COMPARISON: None. FINDINGS: Bones: No fractures or dislocations. No suspicious bony lesions. Visualized ribs appear intact. Soft tissues: No suspicious soft tissue calcifications. IMPRESSION: No acute bony abnormality. Dictated by: Marvin Funes M.D. on 01/27/2024 at 10:38 Approved by: Marvin Funes M.D. on 01/27/2024 at 10:38 X-ray cervical spine: Radiologist's Impression: [address] [address] XRay Report Signed Patient: Curt Dover MR#: [id number] : 1990 Acct:[id number] Age/Sex: 33 / M Date of Service: 01/27/24 Loc: ED Accession Number: [id number] Procedure: XR cervical spine 2V or 3V Ordering Provider: Tony Alonzo MD PROCEDURE: XR CERVICAL SPINE 2V OR 3V INDICATIONS: Pain/injury TECHNIQUE: 3 view(s) of the cervical spine were acquired. COMPARISON: None. FINDINGS: Bones: No fractures or dislocations to the T1 level. The lateral masses of C1 appear intact on the odontoid view. No suspicious bony lesions. Soft tissues: No prevertebral soft tissue swelling. IMPRESSION: Unremarkable cervical spine plain films. No acute cervical fracture or dislocation. Dictated by: Marvin Funes M.D. on 01/27/2024 at 10:39 Approved by: Marvin Funes M.D. on 01/27/2024 at 10:39 [facility] Narrative Medical decision making narrative: Patient here for left-sided neck pain radiating to his left scapula and left arm with pain and tingling to his hand and fingers. Patient states this occurred at work yesterday. He was carrying a heavy trash can and was putting it down but let go too quickly and it pulled on his left arm and neck. Patient seen here November 19, 2021 for injury to the head and straining his neck when he is working on a vehicle. He had CT head and CT cervical spine at that time. Injury occurred November 16, 2021. Has been doing well since then. Patient states he drove here however his can pick him up. He is allergic to steroids. He did try left over cyclobenzaprine 5 mg without relief. He has been taking ibuprofen as well. Left shoulder to fingertips exposed. Neck exposed. After history and exam Toradol Percocet Zofran x-ray cervical spine and left shoulder [facility] Medical records reviewed: No recent visit for this complaint, records from 05/11/2022 reviewed visit here and the following month as well. Differential considered: Includes but not limited to cervical strain cervical radiculopathy rotator cuff injury shoulder sprain strain, shoulder dislocation Imaging studies independently reviewed: X-ray cervical spine x-ray left shoulder no acute finding Consultations: None indicated at this time Treatments: is driving, Toradol Zofran Percocet Re-evaluations: 11:17 a.m.. Reviewed results with patient. Pain is much better after medications. 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 Referral for Orthopedics provided. He may need outpatient MRI or physical therapy for this injury. Work note provided for today and tomorrow. He states there is not much light duty where he can do but I did put it in his L and I forms if possible to do. Return precautions reviewed. He desires discharge home Discussion: Appropriate for discharge home. Exam is reassuring imaging reassuring. Pain is controlled. L and I forms completed. Return precautions reviewed. Referral for Orthopedics provided. He desires discharge home. Patient prescribed Valium in the past for muscle spasms. I will provide a short course again. Given degree of pain patient has had. Diagnosis: Cervical strain cervical radiculopathy shoulder strain Discharge Plan Departure Patient Disposition: Home Clinical Impression: Cervical radiculopathy Cervical strain, acute Qualifiers: Encounter type: initial encounter Qualified Code(s): S16.1XXA - Strain of muscle, fascia and tendon at neck level, initial encounter Left shoulder strain Qualifiers: Encounter type: initial encounter Qualified Code(s): S46.912A - Strain of unspecified muscle, fascia and tendon at shoulder and upper arm level, left arm, initial encounter Instructions: DI for Cervical Radiculopathy, DI for Cervical Muscle Strain, DI for Shoulder Pain Activity Restrictions/Additional Instructions: No driving operating machinery today. L and I forms were completed. Work note has been provided for today and tomorrow. I do recommend light duty work no use of left arm until seen by orthopedic offices. Please call provided orthopedic office today for follow up. Prescription medication has been sent to your pharmacy to continue. Return if worse if any questions or concerns. Prescriptions: New diazepam [Valium] 10 mg tablet 10 mg PO BID PRN (Reason: muscle spasm) Qty: 14 0RF ibuprofen 800 mg tablet 800 mg PO Q8H PRN (Reason: pain) Qty: 20 0RF No Action benzonatate 100 mg capsule 100 mg PO BID-TID PRN (Reason: cough) Qty: 14 0RF cyclobenzaprine 5 mg tablet 5 mg PO TID PRN (Reason: muscle spasm) Qty: 20 0RF metronidazole 500 mg tablet 500 mg PO TID Qty: 30 0RF ciprofloxacin HCl [Cipro] 500 mg tablet 500 mg PO BID Qty: 8 0RF diazepam [Valium] 5 mg tablet 5 mg PO TID PRN (Reason: muscle spasm) Qty: 10 0RF ondansetron 4 mg tablet,disintegrating 4 mg PO Q6H PRN (Reason: nausea and vomiting) Qty: 10 0RF ondansetron 4 mg tablet,disintegrating 4 mg PO Q8H PRN (Reason: nausea and vomiting) Qty: 10 0RF Referrals: Miscellaneous,Doctor, [Primary Care Provider] - Chelsey Bro MD [Physician] - Stand Alone Forms: Patient Portal/API, Work Release Note
[2024-01-27] MEDS: OXYCODONE/ACETAMINOPHEN 5/325 TABLET 2 TAB PO (10:18)
[2024-01-27] MEDS: KETOROLAC 30 MG/ML VIAL IM (10:19)
== END 2024-01-27 12:00 | disposition home or self-care (01) ==
PROVIDERS: Emergency Provider Emergency Medicine
DX: S16.1XXA Strain of muscle, fascia and tendon at neck level, initial encounter (principal); S46.912A Strain of unspecified muscle, fascia and tendon at shoulder and upper arm level, left arm, initial encounter; M54.12 Radiculopathy, cervical region; X50.1XXA Overexertion from prolonged static or awkward postures, initial encounter
CPT/HCPCS: 72040; 73030; 96372; 99283; 99284; J1885

== ENCOUNTER → 2024-03-22 12:06 | Outpatient (CLI) | payer OTHER, SELFPAY ==
--- NOTE | 2024-03-22 12:10 | DI.MRI.S_ITS ---
PROCEDURE: MR SHOULDER LT WO CON INDICATIONS: CERVICAL PAIN; LEFT SHOULDER PAIN TECHNIQUE: Noncontrast oblique coronal T2 fast spin echo with fat saturation, oblique sagittal T1 spin echo and T2 fast spin echo with fat saturation, axial T1 spin echo and T2 fast spin echo with fat saturation through the shoulder. COMPARISON: [facility], CR, XR SHOULDER LT MIN 2V, 01/27/2024, 10:20. FINDINGS: Image quality: Excellent Rotator cuff: Mild tendinosis of the supraspinatus, without tear. The infraspinatus is unremarkable. The teres minor is unremarkable. The subscapularis is intact. No muscle edema or fatty atrophy. Bones and bursae: The acromioclavicular joint is unremarkable. Type 1 acromion. No os acromiale. Trace subacromial/subdeltoid bursitis. Marrow signal is normal for age. No acute fracture. No definitive focal chondral defect of the glenohumeral articulation. Capsule and soft tissues: The labrum is grossly intact. The extra-articular biceps tendon and the intra-articular biceps tendon are intact. No significant glenohumeral effusion. IMPRESSION: Mild tendinosis of the supraspinatus, without tear. Trace subacromial/subdeltoid bursitis. Dictated by: Kenisha Shoemaker M.D. on 03/22/2024 at 19:56 Approved by: Kenisha Shoemaker M.D. on 03/22/2024 at 20:03
--- NOTE | 2024-03-22 12:10 | DI.MRI.S_ITS ---
PROCEDURE: MR CERVICAL SPINE WO CON INDICATIONS: CERVICAL PAIN; LEFT SHOULDER PAIN TECHNIQUE: Noncontrast sagittal T1 spin echo and T2 fast spin echo, sagittal STIR, foraminal oblique sagittal T2 fast spin echo, and axial gradient echo or T2 fast spin echo through the cervical spine. COMPARISON: None. FINDINGS: Image quality: Excellent. Alignment and Curvature: There is normal bony alignment. Bone Marrow: Marrow demonstrates normal overall signal. Spinal Cord: Visualized spinal cord has normal size and signal. No cerebellar tonsillar herniation. Paraspinous Soft Tissues: No paravertebral masses. Prevertebral soft tissues are normal in thickness. C2-C3: Normal appearance. C3-C4: No canal stenosis. Mild right uncovertebral joint hypertrophy. [id number] right foraminal narrowing. Mild left foraminal narrowing. C4-C5: Minimal disc bulge. No canal stenosis or foraminal stenosis. C5-C6: Minimal disc bulge. No canal stenosis or foraminal stenosis. C6-C7: Minimal disc bulge. No canal stenosis or foraminal stenosis. C7-T1: Normal appearance. IMPRESSION: 1. No canal stenosis or foraminal stenosis. 2. Minimal multilevel disc bulges. Dictated by: Marvin Funes M.D. on 03/22/2024 at 15:32 Approved by: Marvin Funes M.D. on 03/22/2024 at 15:36
== END ==
PROVIDERS: PCP Physician Assistant Medical; Referring Provider Physician Assistant Medical; Visit Provider Physician Assistant Medical
DX: S16.1XXA Strain of muscle, fascia and tendon at neck level, initial encounter (principal); S46.912A Strain of unspecified muscle, fascia and tendon at shoulder and upper arm level, left arm, initial encounter; X58.XXXA Exposure to other specified factors, initial encounter
CPT/HCPCS: 72141; 73221

== ENCOUNTER 2024-05-25 14:44 | Emergency (ER) | payer OTHER, SELFPAY ==
[2024-05-25 14:51] VITALS: BP 150/97; PULSE 87; RESP 18; TEMP 37; O2SAT 97
[2024-05-25] MEDS: LIDOCAINE 5% PATCH 1 EACH TOP (15:08)
[2024-05-25] MEDS: KETOROLAC 30 MG/ML VIAL IM (15:08)
[2024-05-25 16:20] VITALS: BP 136/85; PULSE 65; RESP 16; O2SAT 96
--- NOTE | 2024-05-25 16:52 | ED.EXTPRO ---
HPI - Extremity Problem <Tiago Conde PA-C - Last Filed: 05/25/24 16:59> General Chief complaint: Extremity Problem,Nontraumatic Stated complaint: arm swelling Time Seen by Provider: 05/25/24 14:56 Source: patient Mode of arrival: Ambulatory History of Present Illness HPI Narrative: 34-year-old male presents to the ED with worsening neck and left arm pain. Patient had an injury in January, following which she was diagnosed with a C6 disc impingement. Patient is scheduled to receive some injections for the pain, however his worker's compensation required a 2nd opinion EMG testing. Patient underwent the EMG testing this morning, following which he experienced intense left arm pain when driving back. Patient reports taking ibuprofen, hydrocodone for the pain without relief. Patient does endorse numbness, tingling since his injury in January. Patient has not called his [facility] specialist today. No new trauma today other than the EMG testing which patient states was not particularly invasive. Related Data Previous Rx's Medication Instructions Recorded benzonatate 100 mg capsule 100 mg PO BID-TID PRN cough #14 08/22/21 caps diazepam 5 mg tablet (Valium) 5 mg PO TID PRN muscle spasm #10 11/19/21 tabs ondansetron 4 mg disintegrating 4 mg PO Q6H PRN nausea and 11/19/21 tablet vomiting #10 tabs ondansetron 4 mg disintegrating 4 mg PO Q8H PRN nausea and 10/11/22 tablet vomiting #10 tabs ciprofloxacin HCl 500 mg tablet 500 mg PO BID #8 tabs 10/15/22 (Cipro) metronidazole 500 mg tablet 500 mg PO TID #30 tabs 10/15/22 cyclobenzaprine 5 mg tablet 5 mg PO TID PRN muscle spasm #20 05/30/23 tabs diazepam 10 mg tablet (Valium) 10 mg PO BID PRN muscle spasm #14 01/27/24 tabs ibuprofen 800 mg tablet 800 mg PO Q8H PRN pain #20 tabs 01/27/24 cyclobenzaprine 10 mg tablet 10 mg PO TID PRN muscle spasm #14 05/25/24 tabs Allergies Allergy/AdvReac Type Severity Reaction Status Date / Time Penicillins Allergy Mild Unknown Verified 05/26/24 07:27 steroid AdvReac Weakness Uncoded 05/26/24 07:27 Review of Systems <Tiago Conde PA-C - Last Filed: 05/25/24 16:59> Constitutional Constitutional: Denies chills, Denies fatigue, Denies fever(s), Denies frequent falls, Denies lethargy and Denies weakness Eyes Eyes: Denies change in vision, Denies eye discharge, Denies irritation and Denies loss of vision ENT Ears, Nose, Mouth, and Throat: Denies change in voice, Denies dizziness, Denies neck pain, Denies sore throat and Denies throat swelling Cardiovascular Cardiovascular: Denies chest pain, Denies irregular heart rhythm, Denies lightheadedness, Denies palpitations, Denies dyspnea, Denies dyspnea on exertion and Denies orthopnea Respiratory Respiratory: Denies cough, Denies dyspnea, Denies dyspnea on exertion and Denies wheezing Gastrointestinal Gastrointestinal: Denies abdominal pain, Denies change in bowel habits, Denies diarrhea, Denies nausea and Denies vomiting Musculoskeletal Musculoskeletal: Denies neck pain and Denies numbness Comments: L arm pain Integumentary/Breasts Skin/Breast: Denies pruritus, Denies erythema, Denies rash and Denies wounds Neurologic Neurologic: Denies behavioral changes, Denies confusion, Denies dizziness, Denies frequent falls, Denies loss of vision, Denies numbness and Denies weakness Psychiatric Psychiatric: Denies anxiety, Denies behavioral changes, Denies confusion, Denies depression, Denies homicidal ideation and Denies suicidal ideation Endocrine Endocrine: Denies fatigue, Denies flushing and Denies palpitations Hematologic/Lymphatic Hematologic/Lymphatic: Denies easy bruising Allergic/Immunologic Allergic/Immunologic: Denies urticaria, Denies throat swelling and Denies wheezing Patient History <Tiago Conde PA-C - Last Filed: 05/25/24 16:59> Social History (System 05/26/24 @ 07:27 by Danielle George) Smoking Status: Current every day smoker Smoking Status: Current every day smoker tobacco type: cigarettes alcohol intake frequency: 0-2 drinks per day Alcohol type: beer and hard liquor Substance Use Type: does not use Exam <Tiago Conde PA-C - Last Filed: 05/25/24 16:59> Narrative Exam Narrative: Const General:?cooperative, healthy appearing and comfortable [facility] Head:?normal to inspection Ears:?hearing grossly normal bilaterally Nose:?external nose normal Face and sinus:?normal facial exam and sinuses nontender Mouth:?oral mucosae normal Throat:?posterior oropharynx normal Eyes General:?appearance normal, both eyes and all related structures Neck Neck:?normal visual inspection and no lymphadenopathy noted Resp Effort & Inspection:?normal respiratory effort Auscultation:?clear to auscultation bilaterally Cardio Rate:?regular rate Rhythm:?regular rhythm Musculoskeletal Patient's range of motion is limited due to pain. Patient endorses this is baseline since January. Patient is neurovascularly intact. No deformities. Sensation intact. Neuro General:?patient alert, patient awake and patient oriented x3 Initial Vital Signs Initial Vital Signs: Vital Signs Temperature 98.6 F 05/25/24 14:51 Pulse Rate 87 05/25/24 14:51 Respiratory Rate 18 05/25/24 14:51 Blood Pressure 150/97 H 05/25/24 14:51 Pulse Oximetry 97 05/25/24 14:51 Oxygen Delivery Method Room Air 05/25/24 14:51 <Saniya Richard DO - Last Filed: 06/03/24 04:43> Initial Vital Signs Initial Vital Signs: Vital Signs Temperature 98.6 F 05/25/24 14:51 Pulse Rate 87 05/25/24 14:51 Respiratory Rate 18 05/25/24 14:51 Blood Pressure 150/97 H 05/25/24 14:51 Pulse Oximetry 97 05/25/24 14:51 Oxygen Delivery Method Room Air 05/25/24 14:51 Course <Tiago Conde PA-C - Last Filed: 05/25/24 16:59> Orders Ordered: Discontinued Medications Ketorolac Tromethamine (Ketorolac 30 Mg/Ml Vial) 30 mg IM NOW ONE Stop: 05/25/24 15:04 Last Admin: 05/25/24 15:08 Dose: 30 mg Documented By: ANTHONY Lidocaine (Lidocaine 5% Patch) 1 each TOP NOW ONE Stop: 05/25/24 15:04 Last Admin: 05/25/24 15:08 Dose: 1 each Documented By: ANTHONY Vital Signs Vital signs: Vital Signs - 8 hr 05/25/24 14:51 05/25/24 16:20 Temperature 98.6 F Pulse Rate 87 65 Respiratory Rate 18 16 Blood Pressure 150/97 H 136/85 Pulse Oximetry 97 96 Oxygen Delivery Method Room Air Room Air <Saniya Richard DO - Last Filed: 06/03/24 04:43> Orders Ordered: Discontinued Medications Ketorolac Tromethamine (Ketorolac 30 Mg/Ml Vial) 30 mg IM NOW ONE Stop: 05/25/24 15:04 Last Admin: 05/25/24 15:08 Dose: 30 mg Documented By: ANTHONY Lidocaine (Lidocaine 5% Patch) 1 each TOP NOW ONE Stop: 05/25/24 15:04 Last Admin: 05/25/24 15:08 Dose: 1 each Documented By: ANTHONY Vital Signs Vital signs: Vital Signs - 8 hr 05/25/24 14:51 05/25/24 16:20 Temperature 98.6 F Pulse Rate 87 65 Respiratory Rate 18 16 Blood Pressure 150/97 H 136/85 Pulse Oximetry 97 96 Oxygen Delivery Method Room Air Room Air MDM - Extremity (Nontraumatic) <Tiago Conde PA-C - Last Filed: 05/25/24 16:59> MDM Narrative Medical decision making narrative: 34-year-old male presents to the ED with worsening neck and left arm pain. Patient had an injury in January, following which she was diagnosed with a C6 disc impingement. Patient is neurovascularly intact today. There is no new trauma to indicate other imaging at this time. Patient was given a shot of Toradol and lidocaine patch applied with some good relief. Recommend follow-up with [facility] as soon as possible. ED return precautions discussed with patient. Patient verbalized understanding. Medical records reviewed: Yes Discharge Plan Departure Patient Disposition: Home Clinical Impression: Cervical radiculopathy Instructions: DI for Cervical Radiculopathy Activity Restrictions/Additional Instructions: You were evaluated in the ED today for left-sided neck and arm pain. It appears that this is an exacerbation of your disc issue in the neck. You were given an injection of Toradol and a lidocaine patch was applied for pain relief. You have been prescribed a muscle relaxant for pain relief. Please follow-up with your orthopedic surgeon as soon as possible for further evaluation and treatment. You may continue to take your pain medications at home. Return to the ED if you have worsening symptoms, worsening numbness, tingling, weakness. Prescriptions: New cyclobenzaprine 10 mg tablet 10 mg PO TID PRN (Reason: muscle spasm) Qty: 14 0RF No Action benzonatate 100 mg capsule 100 mg PO BID-TID PRN (Reason: cough) Qty: 14 0RF cyclobenzaprine 5 mg tablet 5 mg PO TID PRN (Reason: muscle spasm) Qty: 20 0RF metronidazole 500 mg tablet 500 mg PO TID Qty: 30 0RF ciprofloxacin HCl [Cipro] 500 mg tablet 500 mg PO BID Qty: 8 0RF diazepam [Valium] 10 mg tablet 10 mg PO BID PRN (Reason: muscle spasm) Qty: 14 0RF ibuprofen 800 mg tablet 800 mg PO Q8H PRN (Reason: pain) Qty: 20 0RF diazepam [Valium] 5 mg tablet 5 mg PO TID PRN (Reason: muscle spasm) Qty: 10 0RF ondansetron 4 mg tablet,disintegrating 4 mg PO Q6H PRN (Reason: nausea and vomiting) Qty: 10 0RF ondansetron 4 mg tablet,disintegrating 4 mg PO Q8H PRN (Reason: nausea and vomiting) Qty: 10 0RF Referrals: Dada Junior, [facility] [Primary Care Provider] - Stand Alone Forms: Patient Portal/API ED Sign-out <Saniya Richard DO - Last Filed: 06/03/24 04:43> Cosign ED Attending Cosimtiazature Attestation: I was immediately available in the department for consultation.
== END 2024-05-25 16:21 | disposition home or self-care (01) ==
PROVIDERS: Emergency Provider Student in an Organized Health Care Education/Training Program; PCP Physician Assistant Medical
DX: M54.12 Radiculopathy, cervical region (principal)
CPT/HCPCS: 96372; 99283; J1885